=== PATIENT | male | born 1940 | race Caucasian/White ===

== ENCOUNTER 2019-09-28 09:18 | Outpatient (CLI) | payer MEDICARE, OTHER, SELFPAY ==
--- NOTE | 2019-09-28 09:34 | XR_ITS ---
WS: [id number] views of the right third finger, 09/28/2019 Clinical Data: DOG BITE ON R MIDDLE FINGER Comparison: None. Findings: There are small radiopaque fragments at the level of the right third DIP joint. The dog bite may have avulsed some cortical fragments from the distal portion of the middle phalanx and the base of the di stal phalanx. The joint spaces are normal. XR/XR finger RT min 2V [id number] Impression: Dog bite which may have caused cortical fracture of the radial distal base of t he third middle phalanx and radial proximal base of the third distal phalanx.
== END 2019-09-28 09:19 | disposition home or self-care (01) ==
LOC: RAD 09:26
PROVIDERS: Family Provider Family Medicine; PCP Family Medicine; Visit Provider Family Medicine
DX: S61.252A Open bite of right middle finger without damage to nail, initial encounter (principal); X58.XXXA Exposure to other specified factors, initial encounter
CPT/HCPCS: 73140

== ENCOUNTER → 2020-03-04 12:54 | Outpatient (BNVA) | payer MEDICARE, OTHER, SELFPAY | PROVIDERS: Family Provider Family Medicine; PCP Family Medicine; Visit Provider Dermatology | DX: L57.0 Actinic keratosis (principal); D48.9 Neoplasm of uncertain behavior, unspecified; D69.2 Other nonthrombocytopenic purpura; L82.1 Other seborrheic keratosis; B35.1 Tinea unguium; L57.8 Other skin changes due to chronic exposure to nonionizing radiation; F17.210 Nicotine dependence, cigarettes, uncomplicated; Z85.89 Personal history of malignant neoplasm of other organs and systems | CPT/HCPCS: 11102; 11103; 11310; 11311; 17004; 88305; 99202; 99203 ==

== ENCOUNTER → 2020-04-21 07:56 | Outpatient (BNVA) | payer MEDICARE, OTHER, SELFPAY | PROVIDERS: Family Provider Family Medicine; PCP Family Medicine; Visit Provider Dermatology | DX: C44.91 Basal cell carcinoma of skin, unspecified (principal); C44.01 Basal cell carcinoma of skin of lip; C44.319 Basal cell carcinoma of skin of other parts of face; D48.9 Neoplasm of uncertain behavior, unspecified | CPT/HCPCS: 12052; 17311 ==

== ENCOUNTER → 2020-04-30 13:06 | Outpatient (BNVA) | payer MEDICARE, OTHER, SELFPAY | PROVIDERS: Family Provider Family Medicine; PCP Family Medicine; Visit Provider Dermatology | DX: Z48.02 Encounter for removal of sutures (principal) | CPT/HCPCS: 73502; 99024 ==

== ENCOUNTER → 2020-06-19 11:03 | Outpatient (BNVA) | payer MEDICARE, OTHER, SELFPAY | PROVIDERS: Family Provider Family Medicine; PCP Family Medicine; Visit Provider Orthopaedic Surgery | DX: M48.061 Spinal stenosis, lumbar region without neurogenic claudication (principal); M54.5 Low back pain | CPT/HCPCS: 72114 ==

== ENCOUNTER 2020-06-24 11:18 | Outpatient (CLI) | payer MEDICARE, OTHER, SELFPAY ==
--- NOTE | 2020-06-24 11:45 | MR_ITS ---
WS: [id number] MRI LUMBAR SPINE NONCONTRAST TECHNIQUE: Sagittal T1, T2 and STIR imaging. Axial T1 and T2 imaging. CLINICAL INFORMATION: M54.9 Dorsalgia, unspecified COMPARISON: None. FINDINGS: Mild lumbar curve. No acute compression. No high-grade central canal stenosis. Slight retrolisthesis L3 on L4 and L4 on L5. Disc space narrowing worse L4-5. Degenerative endplate-type changes at L2, L3 and L4. Mild chronic biconcave compression L3 with endplate Schmorl's nodes. L1-L2: Mild disc bulging with narrowing of the right subarticular recess. Mild to moderate facet arth ropathy. Spinal canal and foramen are patent. L2-L3: Mild disc bulging with narrowing of the subarticular recess bilaterally and slight impingement traversing L3 nerve roots. Mild to moderate facet arthropathy. Mild right foraminal narrowing. L3-L4: Mild annular bulging with mild central canal stenosis. Narrowing of the subarticular recess bi laterally. Small right foraminal protrusion with mild right foraminal narrowing. Left foramen is breen nt. Moderate facet arthropathy. L4-L5: Mild disc bulging with a tiny shallow central protrusion. Mild central canal stenosis with sli ght impingement traversing L5 nerve roots bilaterally. Moderate bilateral bony foraminal narrowing. M ild facet arthropathy. L5-S1: Mild disc bulging with osteophytic ridging. Encroachment traversing left S1 nerve root. Modera te bilateral foraminal narrowing with contact of the exiting L5 nerve roots bilaterally left greater than right. Visualized pelvic bony structures: Normal. Paravertebral soft tissues: Normal. Bilateral renal cysts the largest left kidney measuring 3.4 cm. MR/MR lumbar spine wo con* [id number] IMPRESSION: 1. Mild lumbar curve. No acute compression. Slight retrolisthesis L3 on L4 and L4 on L5. 2. Mild central canal stenosis L3-L4 and L4-L5 with narrowing of the subarticu lar recess bilaterally. 3. Shallow central protrusion L4-5 slightly impinges the traversing L5 nerve r oots bilaterally. Moderate bilateral foraminal narrowing with contact of the ex iting L4 nerve roots, left greater than right. 4. Moderate bilateral L5-S1 bony foraminal narrowing worse in the left with co ntact of the far exiting left L5 nerve root. Correlation for left L5 nerve root symptoms. 5. Moderate facet arthropathy L3-L5.
== END 2020-06-24 11:19 | disposition home or self-care (01) ==
LOC: RADSHAW 11:22
PROVIDERS: PCP Family Medicine; Visit Provider Orthopaedic Surgery
DX: M48.061 Spinal stenosis, lumbar region without neurogenic claudication (principal); M51.26 Other intervertebral disc displacement, lumbar region; M47.816 Spondylosis without myelopathy or radiculopathy, lumbar region
CPT/HCPCS: 72148

== ENCOUNTER → 2020-07-16 10:54 | Outpatient (BNVA) | payer MEDICARE, OTHER, SELFPAY | PROVIDERS: PCP Family Medicine; Visit Provider Orthopaedic Surgery | DX: Z20.828 Contact with and (suspected) exposure to other viral communicable diseases (principal) | CPT/HCPCS: 87635 ==

== ENCOUNTER 2020-07-23 05:40 | Day surgery (SDC) | payer MEDICARE, OTHER, SELFPAY ==
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
[2020-07-21 10:56] VITALS: BMI 22.8
[2020-07-21 11:27] LABS: Basophils % 0.2 %; Eosinophils % 0.2 %; Hematocrit 44.9 % (42.0-52.0); Hemoglobin 14.7 g/dL (11.7-16.6); Lymphocytes # 2.7 10^3/uL (0.8-4.8); Lymphocytes % 21.9 %; Mean Corpuscular HGB Conc 32.7 g/dL (30.0-36.0); Mean Corpuscular Hemoglobin 31.2 pg (28.0-34.0); Mean Corpuscular Volume 95.3 fL (80-94); Mean Platelet Volume 10.3 fL (7.4-10.4); Monocytes # 0.8 10^3/uL (0.2-0.9); Monocytes % 6.8 %; Neutrophils # 8.71 10^3/uL (1.8-7.7); Neutrophils % 70.5 %; Nucleated Red Blood Cells % 0 %; Platelet Count 183 10^3/cmm (130-400); Red Blood Count 4.71 10^6/uL (4.1-5.3); Red Cell Distribution Width 14.5 % (12.1-15.1); White Blood Count 12.4 10^3/uL (4.0-10.0)
[2020-07-21 11:45] LABS: Alanine Aminotransferase 9 U/L (0-41); Albumin Level 4.3 g/dL (3.5-5.2); Alkaline Phosphatase 64 IU/L (40-130); Anion Gap 13.2 (5-19); Aspartate Amino Transferase 16 U/L (0-40); Blood Urea Nitrogen 11 mg/dL (8-23); Calcium 9.1 mg/dL (8.5-10.5); Carbon Dioxide 27 mmol/L (22-29); Chloride 95 mmol/L (98-107); Globulin 2.2 g/dL (1.3-4.6); Glucose 98 mg/dL (65-115); Osmolality Calculated 271 mOsm/kg (285-295); Potassium 4.2 mmol/L (3.5-5.1); Sodium 131 mmol/L (136-145); Total Bilirubin 0.3 mg/dL (0.15-1.2); Total Protein 6.5 g/dL (6.6-8.7)
--- NOTE | 2020-07-21 12:22 | P.ANESASSM_ITS ---
Pre-Anesthetic Assessment Pre-Anesthetic Assessment: Height/Weight: Height 1.83 m Weight 76.204 kg Proposed Procedure: Operation Date: 07/23/20 09:40 Proposed Procedures p L4/5 bilateral Lumbar Spine Decompression; left L5/S1:41284 M48.06(Bilateral) - Fausto Anrdews, DO Was Beta Gary taken within 24 hours: N/A Social: Social History: No alcohol and No tobacco Exam: Pre-Anes Outpt Exam: alert, oriented x 3, clear to auscultation bilaterally and regular rate & rhythm Airway: Submandibular: WNL Cervical ROM: WNL MP: 2 Additional comments: Poor dentition Pulmonary: Pulmonary: COPD Comments: h/o smoking CV/HEM: CV/HEM: HTN : : None reported Hepatic: Hepatic: None reported GI: GI: None reported Metabolic: Metabolic: None reported Musc/skel: Musc/skel: Lower Back Pain Neuropsych: Neuropsych: CVA and TIA Anesthetic Plan: ASA status: 3 Anesthesia: General Risk of > 500 ml bloo d loss (7ml/kg in children): Yes, adequate IV access and fluids planned PFSH Anesthesia PFSH: Medical History CAD (coronary artery disease) History of nonmelanoma skin cancer Hyperlipidemia Hypertension Stroke (cerebrum) Surgical History No history of previous surgery Family History Mother Hypertension Other Cancer Social History Smoking and tobacco status: current every day smoker cigarettes Packs smoked per day: 1 Years cigarettes smoked: 60 Alcohol intake: current Alcohol intake frequency: few times a month Alcohol type: beer Data Anesthesia CBC & Chem 7: 07/21/20 11:06 07/21/20 11:06 Other Labs: Laboratory Results - last 48 hr 07/21/20 07/21/20 11:06 11:06 WBC 12.4 H RBC 4.71 Hgb 14.7 Hct 44.9 MCV 95.3 H MCH 31.2 MCHC 32.7 RDW 14.5 Plt Count 183 MPV 10.3 Neut % (Auto) 70.5 Lymph % (Auto) 21.9 Traverse % (Auto) 6.8 Eos % (Auto) 0.2 Baso % (Auto) 0.2 Neut # (Auto) 8.71 H Lymph # (Auto) 2.7 Traverse # (Auto) 0.8 Eos # (Auto) 0.0 Baso # (Auto) 0.0 Nucleated RBC % (auto) 0 Nucleated RBCs # 0.0 Sodium 131 L Potassium 4.2 Chloride 95 L Carbon Dioxide 27 Anion Gap 13.2 BUN 11 Creatinine 0.9 GFR Calculation Not Reportable Glucose 98 Calculated Osmolality 271 L Calcium 9.1 Total Bilirubin 0.3 AST 16 ALT 9 Alkaline Phosphatase 64 Total Protein 6.5 L Albumin 4.3 Globulin 2.2 Cardiac Studies: No Data to Display
[2020-07-23] VITALS (7 sets, daily range): BP systolic 156–168; BP diastolic 55–92; PULSE 64–76; RESP 12–16; TEMP 36.3–36.9; O2SAT 96–100
--- NOTE | 2020-07-23 | SCC_ITS ---
Procedure Done: 1. L4/5 bilateral laminectomy with partial facetectomy 2. L5/S1 Laminectomy with partial facetectomy 17.0 seconds of fluoroscopic guidance, for a cumulative dose of 5.35 mGy, was provided to Dr. Andrews by the radiology department. C-arm images of the lumbar spine were saved for the patient's permanent record. [facility]
[2020-07-23] MEDS: gabapentin 300 mg Capsule PO (06:17)
[2020-07-23] MEDS: sodium chloride 0.9% 1,000 ML 30 ML IV (06:29)
--- NOTE | 2020-07-23 06:32 | P.ANESUD_ITS ---
Pre-Anesthetic Update Pre-Anesthetic Assessment: Date of Surgery/Procedure: 07/23/20 Preop Kenia gnosis: lumbar stenosis Proposed Procedure: Operation Date: 07/23/20 07:30 Proposed Procedures p L4/5 bilateral Lumbar Spine Decompression; left L5/S1:90458 M48.06(Bilateral) - Faustotiki Andrews, DO Any changes to Pre-Anesthetic Assessment?: No Last Intake: Intake Last Liquid Date 07/22/20 Last Liquid Time 21:30 Last Solid Date 07/22/20 Last Solid Time 21:30 Labs Last 48hrs: Laboratory Results - last 48 hr 07/21/20 07/21/20 11:06 11:06 WBC 12.4 H RBC 4.71 Hgb 14.7 Hct 44.9 MCV 95.3 H MCH 31.2 MCHC 32.7 RDW 14.5 Plt Count 183 MPV 10.3 Neut % (Auto) 70.5 Lymph % (Auto) 21.9 Dukes % (Auto) 6.8 Eos % (Auto) 0.2 Baso % (Auto) 0.2 Neut # (Auto) 8.71 H Lymph # (Auto) 2.7 Dukes # (Auto) 0.8 Eos # (Auto) 0.0 Baso # (Auto) 0.0 Nucleated RBC % (a uto) 0 Nucleated RBCs # 0.0 Sodium 131 L Potassium 4.2 Chloride 95 L Carbon Dioxide 27 Anion Gap 13.2 BUN 11 Creatinine 0.9 GFR Calculation Not Reportable Glucose 98 Calculated Osmolal ity 271 L Calcium 9.1 Total Bilirubin 0.3 AST 16 ALT 9 Alkaline Phosphata se 64 Total Protein 6.5 L Albumin 4.3 Globulin 2.2 Vitals: Temperature 98.5 F 07/23/20 06:02 Temperature Source Temporal Artery S can 07/23/20 06:02 Pulse Rate 71 07/23/20 06:02 Respiratory Rate 16 07/23/20 06:02 Blood Pressure 160/55 07/23/20 06:02 Blood Pressure Kathia n 90 07/23/20 06:02 Pulse Oximetry 96 07/23/20 06:02 Oxygen Delivery Me thod 07/23/20 06:02 Exam: Pre-Anes Outpt Exam: alert, oriented x 3, clear to auscultation bilaterally and regular rate & rhythm Cardiac Studies: No Data to Display
--- NOTE | 2020-07-23 06:46 | W.PM.OPSUD ---
Surgery/Procedure H&P Update DATE OF PROCEDURE: July 23, 2020 DATE H&P PERFORMED: 06/24/20 H&P UPDATE INFORMATION: I have reviewed H&P completed within last 30 days, I have examined patient prior to procedure and No changes to prior documentation PREOP DIAGNOSIS: lumbar stenosis PLANNED PROCEDURE: Operation Date: 07/23/20 07:30 Proposed Procedures p L4/5 bilateral Lumbar Spine Decompression; left L5/S1:21859 M48.06(Bilateral) - Fausto Andrews DO
--- NOTE | 2020-07-23 09:13 | PM.OP ---
Operative Report Date of procedure: July 23, 2020 Pre-op Diagnosis: lumbar stenosis Post-op diagnosis: same Procedure Done: 1. L4/5 bilateral laminectomy with partial facetectomy 2. L5/S1 Laminectomy with partial facetectomy Surgeon: Fausto Andrews Anesthesia: General Estimated blood loss (mL): 50 Condition: stable Disposition: PACU Procedure: Patient was brought to the operative suite after being put to sleep from anesthesia patient was placed in the prone position all areas impingement were well-padded. Skin was made at between the L4-5 and L5-S1 level. Is confirmed under C-arm guidance. Dilators were passed to the retractor was inserted onto the L4 lamina bilateral laminectomy and facetectomy partial facetectomies were performed through the tube using a microscope the high-speed bur was used to perform the laminectomy then Kerrison rongeur was used to take down the remaining bone as well as perform the facetectomy was facetectomy medial facetectomy was performed this was done using curettes Kerrisons and high-speed bur ligamentum flavum was then taken down from L4-L5 bilaterally. Once was taken down the dura was thin the ligament flavum was somewhat calcified and thickened. Lateral recesses were opened up once the lateral recesses were opened up the L5 nerve was felt to be adequately decompressed bilaterally once this was completed then wounds irrigated and Surgi-Christopher was placed to stop bleeding. She was brought to the L5-S1 level again dilators were passed to retractor was docked onto the L5 lamina microscope was brought back and laminectomies performed using high-speed bur as well as take down the medial aspect of the facet joint and ligamentum flavum was then taken down from L5-S1 once the leg was removed it was significant thickened with again the dura was thin but in good repair S1 nerve was completely decompressed as was the L5-S1 foramen wounds were irrigated again Surgi-Christopher was placed and then sterile dressings the thoracolumbar fascia was closed with 0 Vicryl skin was closed with 2-0 Vicryl and Monocryl suture skin glue and patient was transferred to the PACU in stable condition.
--- NOTE | 2020-07-23 09:33 | SUR.PHASEI ---
PT SLEEPING QUIETLY VSS PT DENIES PAIN EARLIER .IV PATENT SCDS ON. GOOD RESP EFFORT NOTED SATS 100%
--- NOTE | 2020-07-23 09:51 | XR_ITS ---
WS: [id number] Lumbar spine, 2 cm fluoroscopy views, 07/23/2020 Clinical Data: LUMBAR SPINE DECOMPRESSION Comparison: None. Findings: The AP views showed that the surgeon operated at the L5-S1 level. XR/XR lumbar spine 2-3V* [id number] Impression: Operating room views of the lower lumbar spine.
--- NOTE | 2020-07-23 09:57 | SUR.PHASEI ---
0944 PT AWAKE ALERT DENIES PAIN AND NAUSEA, VSS HANDOFF AT BEDSIDE TO DANIELLE IN OPS, PT MOVES ALL EXT TO COMMAND PT [place], WITH RT EYE CLOSED , PT HAS HX OF STROKE IN PAST.
--- NOTE | 2020-07-23 11:10 | ANE.PACU2 ---
Inpatient post-anesthesia follow up: Airway intact: Yes Vital signs: Temperature 97.8 F Pulse Rate 65 Respiratory Rate 16 Blood Pressure 168/88 Pulse Oximetry 97 Oxygen Delivery Me thod Room Air Oxygen Flow Rate 8 Fraction of Inspir ed Oxygen Hydration adequate: Yes Nausea and vomiting: No Pain level: 3 Mental status: Baseline
== END 2020-07-23 10:30 | disposition home or self-care (01) ==
PROVIDERS: Anesthesiology; PCP Family Medicine; Visit Provider Orthopaedic Surgery
PROC: (CPT 63005; principal; 2020-07-23 07:30)
DX: M48.061 Spinal stenosis, lumbar region without neurogenic claudication (principal); J44.9 Chronic obstructive pulmonary disease, unspecified; I10 Essential (primary) hypertension; Z86.73 Personal history of transient ischemic attack (TIA), and cerebral infarction without residual deficits; I25.10 Atherosclerotic heart disease of native coronary artery without angina pectoris; E78.5 Hyperlipidemia, unspecified; F17.210 Nicotine dependence, cigarettes, uncomplicated
CPT/HCPCS: 63047; 63048; 12345; 72100; 76000; 80053; 85025; J0690; J1100; J2370; J2405; J2704; J2710; J3010; J3490; J7030

== ENCOUNTER → 2020-09-11 13:36 | Outpatient (BNVA) | payer MEDICARE, OTHER, SELFPAY | PROVIDERS: PCP Family Medicine; Visit Provider Orthopaedic Surgery | DX: M53.3 Sacrococcygeal disorders, not elsewhere classified (principal) | CPT/HCPCS: 72220 ==

== ENCOUNTER 2020-12-08 17:20 | Outpatient (CLI) | payer MEDICARE, OTHER, SELFPAY ==
--- NOTE | 2020-12-08 17:56 | XRR_ITS ---
PROCEDURE INFORMATION: Exam: XR Chest Exam date and time: 12/08/2020 5:56 PM Age: 80 years old Clinical indication: Condition or disease; Lung condition and disease; Pneumonia; Cough and shortness of breath; Additional info: Hypoxia/pneumonia TECHNIQUE: Imaging protocol: XR of the chest. Views: Frontal and lateral upright, 2 views. COMPARISON: CR Chest 1 [place] [id number] 04/10/2015 7:15 PM FINDINGS: Lungs: Mild pulmonary hyperexpansion. Mild left lateral basilar subsegmental atelectasis. The lungs are otherwise clear bilaterally. The pulmonary vasculature is normal. Pleural spaces: No pleural effusion. No pneumothorax. Heart/Mediastinum: The heart is normal in size and contour. Mediastinum: Stable. Bones/joints: Stable. XR/XR chest 2V* [id number] IMPRESSION: 1. Mild pulmonary hyperexpansion. 2. Mild left lateral basilar subsegmental atelectasis.
== END 2020-12-08 17:21 | disposition home or self-care (01) ==
PROVIDERS: PCP Family Medicine; Visit Provider Family Medicine
DX: R09.02 Hypoxemia (principal); J98.11 Atelectasis
CPT/HCPCS: 71046

== ENCOUNTER 2021-02-20 12:37 | Outpatient (CLI) | payer MEDICARE, OTHER, SELFPAY ==
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
== END 2021-02-20 12:38 | disposition home or self-care (01) ==
LOC: US 12:39
PROVIDERS: PCP Family Medicine; Visit Provider Family Medicine
DX: I73.9 Peripheral vascular disease, unspecified (principal)
CPT/HCPCS: 93922

== ENCOUNTER → 2021-07-09 13:23 | Outpatient (BNVA) | payer MEDICARE, OTHER, SELFPAY | PROVIDERS: PCP Family Medicine; Visit Provider Orthopaedic Surgery | DX: M54.50 Low back pain, unspecified (principal); Z87.81 Personal history of (healed) traumatic fracture | CPT/HCPCS: 72100 ==

== ENCOUNTER → 2021-07-30 12:22 | Outpatient (BNVA) | payer MEDICARE, OTHER, SELFPAY | PROVIDERS: PCP Family Medicine; Referring Provider Orthopaedic Surgery; Visit Provider Anesthesiology Pain Medicine | DX: M51.36 Other intervertebral disc degeneration, lumbar region (principal); M47.816 Spondylosis without myelopathy or radiculopathy, lumbar region; M51.16 Intervertebral disc disorders with radiculopathy, lumbar region; M53.3 Sacrococcygeal disorders, not elsewhere classified; M79.604 Pain in right leg; M79.605 Pain in left leg; F17.210 Nicotine dependence, cigarettes, uncomplicated; Z79.899 Other long term (current) drug therapy | CPT/HCPCS: 99204 ==

== ENCOUNTER → 2021-08-10 14:21 | Outpatient (BNVA) | payer MEDICARE, OTHER, SELFPAY | PROVIDERS: PCP Family Medicine; Visit Provider Anesthesiology Pain Medicine | DX: M53.3 Sacrococcygeal disorders, not elsewhere classified (principal); M54.50 Low back pain, unspecified; F17.200 Nicotine dependence, unspecified, uncomplicated | CPT/HCPCS: G0260; J1040; J3490 ==

== ENCOUNTER → 2021-08-24 09:32 | Outpatient (BNVA) | payer MEDICARE, OTHER, SELFPAY | PROVIDERS: PCP Family Medicine; Visit Provider Anesthesiology Pain Medicine | DX: M51.36 Other intervertebral disc degeneration, lumbar region (principal); M47.816 Spondylosis without myelopathy or radiculopathy, lumbar region; M51.16 Intervertebral disc disorders with radiculopathy, lumbar region; M53.3 Sacrococcygeal disorders, not elsewhere classified; M79.604 Pain in right leg; M79.605 Pain in left leg; F17.200 Nicotine dependence, unspecified, uncomplicated | CPT/HCPCS: 99214 ==

== ENCOUNTER → 2021-08-31 13:59 | Outpatient (BNVA) | payer MEDICARE, OTHER, SELFPAY | PROVIDERS: PCP Family Medicine; Visit Provider Anesthesiology Pain Medicine | DX: M47.816 Spondylosis without myelopathy or radiculopathy, lumbar region (principal) | CPT/HCPCS: 64493; 64494; 64495; J3490 ==

== ENCOUNTER → 2021-10-06 09:30 | Outpatient (BNVA) | payer MEDICARE, OTHER, SELFPAY | PROVIDERS: PCP Family Medicine; Visit Provider Anesthesiology Pain Medicine | DX: M51.36 Other intervertebral disc degeneration, lumbar region (principal); M47.816 Spondylosis without myelopathy or radiculopathy, lumbar region; M51.16 Intervertebral disc disorders with radiculopathy, lumbar region; M53.3 Sacrococcygeal disorders, not elsewhere classified; F17.210 Nicotine dependence, cigarettes, uncomplicated | CPT/HCPCS: 99214 ==

== ENCOUNTER → 2021-10-21 13:49 | Outpatient (BNVA) | payer MEDICARE, OTHER, SELFPAY | PROVIDERS: PCP Family Medicine; Visit Provider Anesthesiology Pain Medicine | DX: M47.816 Spondylosis without myelopathy or radiculopathy, lumbar region (principal); F17.210 Nicotine dependence, cigarettes, uncomplicated | CPT/HCPCS: 64635; 64636; J1030 ==

== ENCOUNTER → 2021-11-09 12:44 | Outpatient (BNVA) | payer MEDICARE, OTHER, SELFPAY | PROVIDERS: PCP Family Medicine; Visit Provider Anesthesiology Pain Medicine | DX: F17.210 Nicotine dependence, cigarettes, uncomplicated (principal); M47.816 Spondylosis without myelopathy or radiculopathy, lumbar region | CPT/HCPCS: 64635; 64636; J1030 ==

== ENCOUNTER → 2021-11-23 10:34 | Outpatient (BNVA) | payer MEDICARE, OTHER, SELFPAY | PROVIDERS: PCP Family Medicine; Visit Provider Anesthesiology Pain Medicine | DX: M51.36 Other intervertebral disc degeneration, lumbar region (principal); M47.816 Spondylosis without myelopathy or radiculopathy, lumbar region; M51.16 Intervertebral disc disorders with radiculopathy, lumbar region; M53.3 Sacrococcygeal disorders, not elsewhere classified; M79.604 Pain in right leg; M79.605 Pain in left leg; F17.210 Nicotine dependence, cigarettes, uncomplicated | CPT/HCPCS: 99212 ==

== ENCOUNTER → 2021-12-23 12:10 | Outpatient (BNVA) | payer MEDICARE, OTHER, SELFPAY | PROVIDERS: PCP Family Medicine; Visit Provider Family Medicine | DX: I10 Essential (primary) hypertension (principal); G62.9 Polyneuropathy, unspecified; D64.9 Anemia, unspecified | CPT/HCPCS: 80053; 85025 ==

== ENCOUNTER → 2022-01-12 14:41 | Outpatient (BNVA) | payer MEDICARE, OTHER, SELFPAY | PROVIDERS: PCP Family Medicine; Visit Provider Orthopaedic Surgery | DX: M51.16 Intervertebral disc disorders with radiculopathy, lumbar region (principal) | CPT/HCPCS: 99203; 99204; 99213 ==

== ENCOUNTER → 2022-01-17 11:26 | Outpatient (BNVA) | payer MEDICARE, OTHER, SELFPAY | PROVIDERS: PCP Family Medicine; Visit Provider Registered Nurse Neonatal Intensive Care | DX: M54.9 Dorsalgia, unspecified (principal); N39.0 Urinary tract infection, site not specified | CPT/HCPCS: 81000 ==

== ENCOUNTER → 2022-01-26 10:24 | Outpatient (BNVA) | payer MEDICARE, OTHER, SELFPAY | PROVIDERS: PCP Family Medicine; Visit Provider Anesthesiology Pain Medicine | DX: M79.18 Myalgia, other site (principal); M51.36 Other intervertebral disc degeneration, lumbar region; M47.816 Spondylosis without myelopathy or radiculopathy, lumbar region; M51.16 Intervertebral disc disorders with radiculopathy, lumbar region; M53.3 Sacrococcygeal disorders, not elsewhere classified; F17.210 Nicotine dependence, cigarettes, uncomplicated | CPT/HCPCS: 20553; 99213 ==

== ENCOUNTER → 2022-02-15 16:33 | Outpatient (BNVA) | payer MEDICARE, OTHER, SELFPAY | PROVIDERS: PCP Family Medicine; Visit Provider Family Medicine | DX: I10 Essential (primary) hypertension (principal) | CPT/HCPCS: 80048 ==

== ENCOUNTER 2022-02-16 12:16 | Outpatient (CLI) | payer MEDICARE, OTHER, SELFPAY ==
--- NOTE | 2022-02-16 12:27 | XR_ITS ---
WS: [id number] XR chest 2V* [id number] REASON FOR EXAM: ACUTE BRONCHITIS FINDINGS: Calcified the heart and the mediastinum are within normal limits. Calcified granulomatous disease in both hemithoraces. Ill-defined areas of lucency in the upper lung figueroa. No acute pulmonary parenchymal or pleural abnormality. Flattening of the hemidiaphragms and expansion of the anterior clear space. Multiple wedge-shaped and biconcave compression deformities in the thoracic vertebrae which appear un changed compared to 11/28/2020. XR/XR chest 2V* [id number] IMPRESSION: Probable central lobar emphysema with mild to moderate hyperexpansion. No acute chest abnormality.
== END 2022-02-16 12:17 | disposition home or self-care (01) ==
LOC: RAD 12:18
PROVIDERS: PCP Family Medicine; Visit Provider Family Medicine
DX: J20.9 Acute bronchitis, unspecified (principal)
CPT/HCPCS: 71046

== ENCOUNTER → 2022-04-12 08:52 | Outpatient (BNVA) | payer MEDICARE, OTHER, SELFPAY | PROVIDERS: PCP Family Medicine; Visit Provider Anesthesiology Pain Medicine | DX: M51.16 Intervertebral disc disorders with radiculopathy, lumbar region (principal); M51.36 Other intervertebral disc degeneration, lumbar region; M47.816 Spondylosis without myelopathy or radiculopathy, lumbar region; M53.3 Sacrococcygeal disorders, not elsewhere classified; M79.604 Pain in right leg; M79.605 Pain in left leg; F17.210 Nicotine dependence, cigarettes, uncomplicated; Z79.891 Long term (current) use of opiate analgesic | CPT/HCPCS: 99214 ==

== ENCOUNTER → 2022-04-15 12:41 | Outpatient (BNVA) | payer MEDICARE, OTHER, SELFPAY | PROVIDERS: PCP Family Medicine; Visit Provider Family Medicine | DX: M25.521 Pain in right elbow (principal); I10 Essential (primary) hypertension | CPT/HCPCS: 84550; 85025 ==

== ENCOUNTER → 2022-09-06 13:28 | Outpatient (BNVA) | payer MEDICARE, SELFPAY | PROVIDERS: PCP Family Medicine; Visit Provider Family Medicine | DX: G47.00 Insomnia, unspecified (principal); I25.10 Atherosclerotic heart disease of native coronary artery without angina pectoris; I10 Essential (primary) hypertension | CPT/HCPCS: 80053; 85025 ==

== ENCOUNTER → 2022-12-29 13:01 | Outpatient (BNVA) | payer MEDICARE, OTHER, SELFPAY | PROVIDERS: PCP Family Medicine; Visit Provider Dermatology | DX: C44.319 Basal cell carcinoma of skin of other parts of face (principal); Z79.899 Other long term (current) drug therapy; Z85.828 Personal history of other malignant neoplasm of skin; L57.0 Actinic keratosis; S00.86XA Insect bite (nonvenomous) of other part of head, initial encounter; W57.XXXA Bitten or stung by nonvenomous insect and other nonvenomous arthropods, initial encounter; L81.4 Other melanin hyperpigmentation; I78.8 Other diseases of capillaries; R25.2 Cramp and spasm; Z72.0 Tobacco use | CPT/HCPCS: 10120; 17000; 17003; 99214 ==

== ENCOUNTER → 2023-03-01 14:45 | Outpatient (BNVA) | payer MEDICARE, OTHER, SELFPAY | PROVIDERS: PCP Family Medicine; Visit Provider Dermatology | DX: C44.319 Basal cell carcinoma of skin of other parts of face (principal); L57.0 Actinic keratosis; Z85.828 Personal history of other malignant neoplasm of skin; Z72.0 Tobacco use | CPT/HCPCS: 17000; 17003; 99214 ==

== ENCOUNTER → 2023-03-23 12:39 | Outpatient (BNVA) | payer MEDICARE, OTHER, SELFPAY | PROVIDERS: PCP Family Medicine; Visit Provider Family Medicine | DX: I10 Essential (primary) hypertension (principal); M19.90 Unspecified osteoarthritis, unspecified site; G47.00 Insomnia, unspecified | CPT/HCPCS: 80053; 80061; 84550; 85025; 86140 ==

== ENCOUNTER → 2023-05-02 15:07 | Outpatient (BNVA) | payer MEDICARE, OTHER, SELFPAY | PROVIDERS: PCP Family Medicine; Visit Provider Dermatology | DX: C44.319 Basal cell carcinoma of skin of other parts of face (principal); L57.0 Actinic keratosis; D48.5 Neoplasm of uncertain behavior of skin | CPT/HCPCS: 11102; 17000; 17003; 99213 ==

== ENCOUNTER → 2023-05-09 09:45 | Outpatient (BNVA) | payer MEDICARE, OTHER, SELFPAY | PROVIDERS: PCP Family Medicine; Visit Provider Dermatology | DX: C44.319 Basal cell carcinoma of skin of other parts of face (principal); C44.1122 Basal cell carcinoma of skin of right lower eyelid, including canthus | CPT/HCPCS: 12052; 17311; 17312 ==

== ENCOUNTER → 2023-05-16 09:56 | Outpatient (BNVA) | payer MEDICARE, OTHER, SELFPAY | PROVIDERS: PCP Family Medicine; Visit Provider Dermatology | DX: C44.319 Basal cell carcinoma of skin of other parts of face (principal) | CPT/HCPCS: 12052; 17311 ==

== ENCOUNTER → 2023-05-26 11:07 | Outpatient (BNVA) | payer MEDICARE, OTHER, SELFPAY | PROVIDERS: PCP Family Medicine; Visit Provider Dermatology | DX: L57.8 Other skin changes due to chronic exposure to nonionizing radiation (principal); L81.4 Other melanin hyperpigmentation | CPT/HCPCS: 99213 ==

== ENCOUNTER → 2023-08-21 12:45 | Outpatient (BNVA) | payer MEDICARE, OTHER, SELFPAY | PROVIDERS: PCP Family Medicine; Visit Provider Emergency Medicine | DX: R39.9 Unspecified symptoms and signs involving the genitourinary system (principal); N10 Acute pyelonephritis | CPT/HCPCS: 81000; 87086 ==

== ENCOUNTER → 2023-08-25 13:23 | Outpatient (BNVA) | payer MEDICARE, OTHER, SELFPAY | PROVIDERS: PCP Family Medicine; Visit Provider Dermatology | DX: Z85.828 Personal history of other malignant neoplasm of skin (principal); L57.8 Other skin changes due to chronic exposure to nonionizing radiation; L81.4 Other melanin hyperpigmentation; L57.0 Actinic keratosis | CPT/HCPCS: 17000; 99213 ==

== ENCOUNTER → 2023-08-29 15:19 | Outpatient (BNVA) | payer MEDICARE, OTHER, SELFPAY | PROVIDERS: PCP Family Medicine; Visit Provider Family Medicine | DX: R31.9 Hematuria, unspecified (principal); N39.0 Urinary tract infection, site not specified; R53.1 Weakness | CPT/HCPCS: 87077; 87086; 87184 ==

== ENCOUNTER → 2023-08-31 15:58 | Outpatient (BNVA) | payer MEDICARE, OTHER, SELFPAY | PROVIDERS: PCP Family Medicine; Visit Provider Family Medicine | DX: R31.9 Hematuria, unspecified (principal); N39.0 Urinary tract infection, site not specified; R53.1 Weakness | CPT/HCPCS: 81003 ==

== ENCOUNTER → 2023-09-08 07:00 | Outpatient (BNVA) | payer MEDICARE, OTHER, SELFPAY | PROVIDERS: PCP Family Medicine; Visit Provider Family Medicine | DX: N39.0 Urinary tract infection, site not specified (principal) | CPT/HCPCS: 81000 ==

== ENCOUNTER → 2023-10-18 13:04 | Outpatient (BNVA) | payer MEDICARE, OTHER, SELFPAY | PROVIDERS: PCP Family Medicine; Visit Provider Dermatology | DX: L57.0 Actinic keratosis (principal); L82.1 Other seborrheic keratosis; L82.0 Inflamed seborrheic keratosis; L81.4 Other melanin hyperpigmentation; L57.8 Other skin changes due to chronic exposure to nonionizing radiation; Z85.828 Personal history of other malignant neoplasm of skin | CPT/HCPCS: 17000; 17110; 99214 ==

== ENCOUNTER → 2024-02-16 13:13 | Outpatient (BNVA) | payer MEDICARE, OTHER, SELFPAY | PROVIDERS: PCP Family Medicine; Visit Provider Dermatology | DX: L82.0 Inflamed seborrheic keratosis (principal); L57.0 Actinic keratosis; H61.031 Chondritis of right external ear; S50.811A Abrasion of right forearm, initial encounter; X58.XXXA Exposure to other specified factors, initial encounter | CPT/HCPCS: 10160; 17000; 17110; 99213 ==

== ENCOUNTER → 2024-06-05 14:13 | Outpatient (BNVA) | payer MEDICARE, OTHER, SELFPAY | PROVIDERS: PCP Family Medicine; Visit Provider Dermatology | DX: H61.031 Chondritis of right external ear (principal); L81.4 Other melanin hyperpigmentation; L57.8 Other skin changes due to chronic exposure to nonionizing radiation; D48.5 Neoplasm of uncertain behavior of skin; L57.0 Actinic keratosis; L82.1 Other seborrheic keratosis; Z95.828 Presence of other vascular implants and grafts | CPT/HCPCS: 11102; 17000; 99213 ==

== ENCOUNTER → 2024-07-23 13:20 | Outpatient (BNVA) | payer MEDICARE, OTHER, SELFPAY | PROVIDERS: PCP Family Medicine; Visit Provider Dermatology | DX: D03.39 Melanoma in situ of other parts of face (principal); C44.319 Basal cell carcinoma of skin of other parts of face; Z08 Encounter for follow-up examination after completed treatment for malignant neoplasm; Z85.828 Personal history of other malignant neoplasm of skin; L57.0 Actinic keratosis | CPT/HCPCS: 17000; 99214 ==

== ENCOUNTER → 2024-08-02 14:41 | Outpatient (BNVA) | payer MEDICARE, OTHER, SELFPAY | PROVIDERS: PCP Family Medicine; Visit Provider Family Medicine | DX: I25.10 Atherosclerotic heart disease of native coronary artery without angina pectoris (principal); F41.9 Anxiety disorder, unspecified; I10 Essential (primary) hypertension; M51.16 Intervertebral disc disorders with radiculopathy, lumbar region; Z79.899 Other long term (current) drug therapy | CPT/HCPCS: 80053; 80061; 85025 ==

== ENCOUNTER 2024-10-01 12:53 | Outpatient (CLI) | payer MEDICARE, OTHER, SELFPAY ==
--- NOTE | 2024-10-01 12:45 | USCV_ITS ---
Charanjit Alan Age: 83 Gender: M : 1940 Exam Date: 10/01/2024 12:58 Ordering Phys: Milton Madrigal MD Technologist: AGUILAR Exam Location: [place] Indication: LE Pain HISTORY: Lower extremity pain. PROCEDURES: Venous duplex imaging was performed in only the left lower extremity. The following venous structures were evaluated: common femoral vein, profunda vein, proximal portion of the greater saphenous vein, superficial femoral vein, and the popliteal vein. In addition, the posterior tibial and peroneal trunk were evaluated. Serial compression, augmentation maneuvers, and spectral Doppler flow evaluation were performed. FINDINGS: No evidence of DVT seen in any vessel visualized at this time. CONCLUSIONS No evidence of left lower extremity DVT. Rick Carpio MD (Electronically Signed) Final Date: 01 October 2024 17:11 S
== END 2024-10-01 12:54 | disposition home or self-care (01) ==
LOC: RAD 12:55
PROVIDERS: PCP Family Medicine; Visit Provider Family Medicine
DX: M79.605 Pain in left leg (principal)
CPT/HCPCS: 93971

== ENCOUNTER 2024-10-10 16:47 | Emergency (ER) | payer MEDICARE, OTHER, SELFPAY ==
[2024-10-10] VITALS (23 sets, daily range): BP systolic 136–185; BP diastolic 55–103; PULSE 78–93; RESP 15–36; TEMP 36.4; O2SAT 91–97
--- NOTE | 2024-10-10 16:54 | XRR_ITS ---
PROCEDURE INFORMATION: Exam: XR Left Foot Exam date and time: 10/10/2024 5:47 PM Age: 83 years old Clinical indication: Pain; Foot; Left TECHNIQUE: Imaging protocol: Radiologic exam of the left foot. Views: 3 or more views. COMPARISON: No relevant prior studies available. FINDINGS: Bones/joints: Old healed fracture deformity of the left 5th metatarsal. No acute fracture. Soft tissues: Normal. XR/XR foot LT min 3V* [id number] IMPRESSION: 1. No acute fracture. 2. Old healed fracture deformity of the left 5th metatarsal.
--- NOTE | 2024-10-10 17:09 | USR_ITS ---
PROCEDURE INFORMATION: Exam: US Duplex Left Lower Extremity Arteries Or Arterial Bypass Grafts Exam date and time: 10/10/2024 6:01 PM Age: 83 years old Clinical indication: Pain; Other: Cyanosis; Leg, lower; Left TECHNIQUE: Imaging protocol: Left Real-time duplex scan of the arteries or arterial bypass grafts of the left lower extremity with 2-D lugo scale, color Doppler flow and spectral waveform analysis. Images documented and saved. COMPARISON: [place] [id number] 10/10/2024 5:51 PM FINDINGS: Left external iliac artery: Monophasic flow in the left common iliac artery with a peak systolic velocity 72 cm/s. This decreases to 16 cm/s in the distal left iliac artery. Left common femoral artery: No flow. Left superficial femoral artery: No flow. Left popliteal artery: No flow. Left calf/foot arteries: No flow. US/CV arterial duplex [facility] [id number] IMPRESSION: 1. Monophasic flow in the left common iliac artery with a peak systolic velocity 72 cm/s. This decreases to 16 cm/s in the distal left iliac artery. 2. No flow in the left common femoral artery, superficial femoral artery, popliteal artery and calf/foot arteries.
--- NOTE | 2024-10-10 17:09 | W.ED.EXTPRO ---
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 Negative (Negative) 10/10/24 17:36 SARS-CoV-2 (PCR) Negative (Negative) 10/10/24 17:36 All radiology interpretation(s) finalized by discharge Discharge Plan Discharge Patient Disposition: Home Clinical Impression: Critical limb ischemia of left lower extremity, CAD (coronary artery disease), Cellulitis, Rhabdomyolysis Condition: Stable Prescriptions: New sulfamethoxazole-trimethoprim [Bactrim DS] 800-160 mg tablet 1 tab PO BID Qty: 14 0RF No Action PreserVision AREDS 7,160-113-100 [id number] tablet 2 tab PO DAILY Rx Instructions: administer with AM and PM meals cholecalciferol (vitamin D3) 75 mcg (3,000 unit) tablet 75 mcg PO DAILY (DME) electric scooter See Rx Instructions .Route .MEDSUPPLY Qty: 1 0RF Rx Instructions: As directed temazepam 30 mg capsule 30 mg PO .QHS 90 Days Qty: 90 1RF hydrocortisone 2.5 % cream 1 applic topical BID Qty: 30 1RF Rx Instructions: to face no more than 2 wks/mo prn for flares hydrocodone-acetaminophen 5-325 mg tablet 1 tab PO Q8H PRN (Reason: pain) 28 Days Qty: 60 0RF rosuvastatin 10 mg tablet See Rx Instructions .ROUTE .COMPLEX Qty: 90 3RF Dose Instruction: TAKE 1 TABLET BY MOUTH DAILY Rx Instructions: TAKE 1 TABLET BY MOUTH DAILY lisinopril 20 mg tablet See Rx Instructions .ROUTE .COMPLEX Qty: 180 3RF Dose Instruction: TAKE 1 TABLET BY MOUTH TWICE DAILY Rx Instructions: TAKE 1 TABLET BY MOUTH TWICE DAILY gabapentin 300 mg capsule 300 mg PO DAILY Qty: 90 5RF hydralazine 10 mg tablet See Rx Instructions .ROUTE .COMPLEX Qty: 540 3RF Dose Instruction: TAKE 2 TABLETS BY MOUTH THREE TIMES DAILY Rx Instructions: TAKE 2 TABLETS BY MOUTH THREE TIMES DAILY tamsulosin 0.4 mg capsule See Rx Instructions .ROUTE .COMPLEX Qty: 90 3RF Dose Instruction: TAKE 1 CAPSULE BY MOUTH DAILY Rx Instructions: TAKE 1 CAPSULE BY MOUTH DAILY clopidogrel 75 mg tablet 75 mg PO DAILY Qty: 90 3RF Discharge Orders: Discharge ED (Routine); Ordered 10/11/24 Ordered By: Marvin Velarde Referrals: Milton Madrigal MD [Primary Care Provider] - 1 week Patient Instructions: Peripheral Vascular Disease (ED), Peripheral Artery Disease (ED) Activity Restrictions/Additional Instructions: Your evaluation ER showed you are getting no blood flow to your lower extremity on your left side. This is due to all the blood vessels being occluded or blocked. Your case has been discussed with 2 vascular surgeons 1 orthopedic surgeon and 1 hospitalist and there seems to be no medical treatment for your condition. The only treatment agreed upon every provider is amputation of the entire leg. There is no way to revascularize or bypass around the occlusions because every vessel is occluded. You have chosen not to have your leg removed by surgery. There is no medical treatment for your condition. We will place you on antibiotics to help prevent infections. We have consulted case management to arrange for a hospice evaluation for you. Please follow-up with your family physician within the next 7 days for further evaluation treatment. Print Language: Sudanese Coding Level of Care Code ED Last Picker for Alonzo Leonardo
--- NOTE | 2024-10-10 17:18 | USR_ITS ---
PROCEDURE INFORMATION: Exam: US Duplex Left Lower Extremity Veins, Limited Exam date and time: 10/10/2024 5:51 PM Age: 83 years old Clinical indication: Pain; Leg, lower; Left; Prior surgery; Surgery date: 6+ months; Surgery type: Bypass graft; Additional info: Pain smelling TECHNIQUE: Imaging protocol: Real-time duplex ultrasound of the left extremity with 2-D lugo scale, color Doppler flow and spectral waveform analysis including responses to compression and other maneuvers (when performed) with image documentation. Limited exam focused on the left lower extremity veins. COMPARISON: CR XR foot LT min 3V* [id number] 10/10/2024 5:47 PM FINDINGS: Left deep veins: Unremarkable. The common femoral, femoral, proximal profunda femoral and popliteal veins are patent without thrombus. Normal Doppler waveforms. Normal compressibility and/or augmentation response. Superficial veins: Greater saphenous vein at the saphenofemoral junction is patent without thrombus. Soft tissues: Unremarkable. US/CV venous duplex [facility] [id number] IMPRESSION: No evidence of deep vein thrombosis in the left lower extremity.
[2024-10-10 17:36] LABS: Basophils % 0.2 %; Eosinophils % 0.1 %; Hematocrit 43.9 % (37-53); Lymphocytes % 8.8 %; Mean Corpuscular HGB Conc 32.1 g/dL (30-55); Mean Corpuscular Hemoglobin 28.4 pg (27-33); Mean Corpuscular Volume 88.3 fl (82-101); Mean Platelet Volume 10.3 fL (7.4-10.4); Monocytes # 1.3 10^3/uL (0.2-0.9); Monocytes % 5.6 %; Neutrophils # 19.09 10^3/uL (1.8-7.7); Neutrophils % 84.7 %; Nucleated Red Blood Cells % 0 %; Platelet Count 374 10^3/cmm (157-399); Red Blood Count 4.97 10^6/uL (3.85-5.65); White Blood Count 22.51 10^3/uL (3.29-11.43)
[2024-10-10 17:52] LABS: Alanine Aminotransferase 61 U/L (0-41); Albumin Level 3.9 g/dL (3.5-5.2); Alkaline Phosphatase 102 U/L (40-130); Anion Gap 19.7 (5-19); Aspartate Amino Transferase 129 U/L (0-40); Blood Urea Nitrogen 25 mg/dL (8-23); C Reactive Protein 139.9 mg/L (0.0-4.9); Calcium 9.6 mg/dL (8.5-10.5); Carbon Dioxide 26 mmol/L (22-29); Chloride 89 mmol/L (98-107); Creatinine Clr Calc Pharmacy 53.1909; Globulin 3.9 g/dL (1.3-4.6); Glucose 117 mg/dL (65-115); Osmolality Calculated 277 mOsm/kg (285-295); Potassium 3.7 mmol/L (3.5-5.1); Sodium 131 mmol/L (136-145); Total Bilirubin 0.3 mg/dL (0.15-1.2); Total Protein 7.8 g/dL (6.6-8.7)
[2024-10-10 17:53] LABS: Lactic Sepsis W/Reflex 1.5 mmol/L (0.5-2.2)
[2024-10-10 18:14] LABS: Creatine Phosphokinase 3139 U/L (39-308)
[2024-10-10] MEDS: piperacillin-tazobactam 3.375 GM in sodium chloride 0.9% (plus) 50 ML IV (18:20)
[2024-10-10 18:22] LABS: Influenza A NEGATIVE (Negative); Influenza B NEGATIVE (Negative); Respiratory Syncytial Virus Ce NEGATIVE (Negative); SARS-CoV-2 PCR NEGATIVE (Negative)
[2024-10-10] MEDS: linezolid premix 600 MG/300 ML PREMIX 300 MG IV (18:52)
--- NOTE | 2024-10-10 19:09 | CTR_ITS ---
PROCEDURE INFORMATION: Exam: CTA Abdominal Aorta and Bilateral Lower Extremities (Run-off) With Contrast Exam date and time: 10/10/2024 7:29 PM Age: 83 years old Clinical indication: Numbness; Foot; Left; Additional info: Left lower extremity pad/pvd, pulseless, cold TECHNIQUE: Imaging protocol: Computed tomographic angiography of the of the abdominal aorta, pelvis and bilateral lower extremities with contrast. 3D rendering (Not supervised by radiologist): MIP and/or 3D reconstructed images were created by the technologist. Radiation optimization: All CT scans at this facility use at least one of these dose optimization techniques: automated exposure control; mA and/or kV adjustment per patient size (includes targeted exams where dose is matched to clinical indication); or iterative reconstruction. Contrast material: OMNIPAQUE 350; Contrast volume: 125 ml; Contrast route: INTRAVENOUS (IV); COMPARISON: CT kidney stone [id number] 01/20/2018 3:18 PM RADIATION DOSE METRICS: Total DLP (mGy-cm): 921.87 FINDINGS: Aorta: Severe atherosclerotic disease of the abdominal aorta and iliac arteries. Celiac trunk and mesenteric arteries: No occlusion or significant stenosis. Renal arteries: No occlusion or significant stenosis. Right iliac arteries: The right common iliac and external iliac arteries are patent. Right femoral/popliteal arteries: There is severe stenosis in the right common femoral artery secondary to calcified plaque. There is severe stenosis and occlusion in the proximal aspect of the right superficial femoral artery. The vessel reconstitutes distally. There is severe stenosis in the right popliteal artery secondary to calcified plaque. Right infrapopliteal arteries: The right anterior tibial artery is occluded just after its takeoff. The right posterior tibial and peroneal arteries are opacified down to the level of the distal calf. Left iliac arteries: The left common iliac artery, external iliac and common femoral arteries are occluded. Left femoral/popliteal arteries: The left superficial femoral artery and bypass graft are occluded. The left popliteal artery is intermittently opacified with extensive calcified plaque and severe stenosis. Left infrapopliteal arteries: The left anterior tibial and posterior tibial arteries are occluded. The left peroneal artery is intermittently opacified down to the level of the distal calf. Liver: No mass. Gallbladder and biliary ducts: Unremarkable. No calcified stones. No ductal dilation. Pancreas: Unremarkable. No mass. No ductal dilation. Spleen: Normal. No splenomegaly. Adrenal glands: There is a 1.7 cm hypodense lesion in the right adrenal gland measuring 78 Hounsfield units which is indeterminate. However, this is unchanged in size and appearance since the prior abdominal CT dated 01/20/2018 and therefore thought likely to be benign. Kidneys and ureters: Bilateral simple appearing renal cysts are present which do not need further follow-up. There is a 2.1 cm hypodense lesion in the posteromedial cortex of the right kidney measuring 35 Hounsfield units which does not meet imaging criteria for a simple cyst. A three-phase renal CT or renal MRI may be obtained for further evaluation. Alternatively a renal ultrasound may help to exclude a solid lesion. Stomach and bowel: Unremarkable. No obstruction. No mucosal thickening. Appendix: No evidence of appendicitis. Urinary bladder: Unremarkable. No mass. Reproductive: Unremarkable as visualized. Intraperitoneal space: Unremarkable. No free air. No significant fluid collection. Lymph nodes: No lymphadenopathy. Bones/joints: There is a lobulated hypodense lesion in the anterior tip of the left iliac bone measuring 2.8 x 2.1 cm (series 5, image 234). This was not present on the prior abdominal CT dated 01/20/2018 and neoplasm can not be excluded in the absence of interval trauma. Soft tissues: There is a nonobstructed bowel containing right inguinal hernia. Other findings: . CT/CT angio abd aorta runof [id number] IMPRESSION: 1. There is a 2.1 cm hypodense lesion in the posteromedial cortex of the right kidney measuring 35 Hounsfield units which does not meet imaging criteria for a simple cyst. A three-phase renal CT or renal MRI may be obtained for further evaluation. Alternatively a renal ultrasound may help to exclude a solid lesion. 2. There is a nonobstructed bowel containing right inguinal hernia. 3. There is a lobulated hypodense lesion in the anterior tip of the left iliac bone measuring 2.8 x 2.1 cm (series 5, image 234). This was not present on the prior abdominal CT dated 01/20/2018 and neoplasm can not be excluded in the absence of interval trauma. 4. The right common iliac and external iliac arteries are patent. 5. There is severe stenosis in the right common femoral artery secondary to calcified plaque. There is severe stenosis and occlusion in the proximal aspect of the right superficial femoral artery. The vessel reconstitutes distally. There is severe stenosis in the right popliteal artery secondary to calcified plaque. 6. The right anterior tibial artery is occluded just after its takeoff. The right posterior tibial and peroneal arteries are opacified down to the level of the distal calf. 7. The left common iliac artery, external iliac and common femoral arteries are occluded. 8. The left superficial femoral artery and bypass graft are occluded. 9. The left popliteal artery is intermittently opacified with extensive calcified plaque and severe stenosis. 10. The left anterior tibial and posterior tibial arteries are occluded. The left peroneal artery is intermittently opacified down to the level of the distal calf.
[2024-10-10] MEDS: iohexol 350 mg/mL 500 mL Btl (per mL) IV (19:45)
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
[2024-10-10] MEDS: ketorolac 30 mg/mL INJ IVP (20:25)
[2024-10-10] MEDS: heparin 5,000 unit/mL INJ 1 mL IVP (22:01)
[2024-10-10] MEDS: heparin drip 25,000 UNIT/500 ML PREMIX 20.07 UNIT IV (22:05)
[2024-10-11 00:31] VITALS: BP 163/88; PULSE 81; RESP 18; O2SAT 91
[2024-10-11 01:18] VITALS: BP 161/65; PULSE 81; RESP 18; O2SAT 92
== END 2024-10-11 02:08 | disposition home or self-care (01) ==
LOC: ER 17:09 → MEDSURG 18:58
PROVIDERS: Family Medicine; Emergency Provider Emergency Medicine; PCP Family Medicine
DX: I70.222 Atherosclerosis of native arteries of extremities with rest pain, left leg (principal); I25.10 Atherosclerotic heart disease of native coronary artery without angina pectoris; L03.116 Cellulitis of left lower limb; T79.6XXA Traumatic ischemia of muscle, initial encounter; X58.XXXA Exposure to other specified factors, initial encounter; Z86.73 Personal history of transient ischemic attack (TIA), and cerebral infarction without residual deficits; Z79.02 Long term (current) use of antithrombotics/antiplatelets; Z11.52 Encounter for screening for COVID-19; I10 Essential (primary) hypertension; E78.5 Hyperlipidemia, unspecified
CPT/HCPCS: 36415; 73630; 75635; 80053; 82550; 83605; 85025; 86140; 87040; 87637; 93926; 93971; 96365; 96366; 96367; 96375; 99285; J1644; J1885; J2020; J2543

== ENCOUNTER 2024-10-26 09:13 | Inpatient (IN) | payer MEDICARE, OTHER, SELFPAY ==
[2024-10-26] VITALS (19 sets, daily range): BP systolic 112–186; BP diastolic 63–101; PULSE 62–99; RESP 13–25; TEMP 36.3–36.7; O2SAT 92–99; BMI 23.0
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
[2024-10-26 09:25] LABS: Basophils # 0.1 10^3/uL (0.0-0.1); Basophils % 0.4 %; Eosinophils # 0.1 10^3/uL (0.0-0.8); Eosinophils % 0.7 %; Hematocrit 38.9 % (37-53); Lymphocytes # 2.7 10^3/uL (0.8-4.8); Lymphocytes % 18.3 %; Mean Corpuscular HGB Conc 31.9 g/dL (30-55); Mean Corpuscular Hemoglobin 27.2 pg (27-33); Mean Corpuscular Volume 85.3 fl (82-101); Mean Platelet Volume 8.9 fL (7.4-10.4); Monocytes % 6.6 %; Neutrophils # 10.86 10^3/uL (1.8-7.7); Neutrophils % 73.3 %; Nucleated Red Blood Cells % 0 %; Platelet Count 456 10^3/cmm (157-399); Red Blood Count 4.56 10^6/uL (3.85-5.65); Red Cell Distribution Width 15.9 % (12.1-15.1); White Blood Count 14.79 10^3/uL (3.29-11.43)
--- NOTE | 2024-10-26 09:32 | XR_ITS ---
WS: [id number] XR chest 1V portable [id number] REASON FOR EXAM: dyspnea/cough FINDINGS: Chest is unchanged compared to the previous examination of 02/16/2022. There is moderate tortuosity and ectasia of the thoracic aorta. Heart size is at the upper limits of normal. Calcified granulomatous disease in both hemithoraces. Fibrotic and bullous changes in the apex of the right upper lung. No acute pulmonary parenchymal or pleural abnormality. Mild degenerative spondylosis in the thoracic spine for age. XR/XR chest 1V portable [id number] IMPRESSION: Stable chest with no acute abnormality.
--- NOTE | 2024-10-26 09:32 | CT_ITS ---
WS: [id number] CT HEAD NONCONTRAST HISTORY: Loss of consciousness TECHNIQUE: Contiguous axial imaging performed through the brain. Bone and soft tissue windows. Sagittal and coronal reformats reviewed. All CT scans at [facility] use at least one of these dose optimization techniques: automated exposure control; mA and/or kV adjustment per patient size (includes targeted exams where dose is matched to clinical indication); or iterative reconstruction. DLP: 1133.58 mGy.cm COMPARISON: CT angiogram 08/01/2009 No acute intracranial hemorrhage, midline shift or mass effect. Marked severe atrophy. Large remote RIGHT occipital lobe infarct. Large prior RIGHT frontal lobe infarct. Extensive bilateral small vessel ischemic disease throughout the white matter. Lacunar infarct RIGHT olivares radiata. Ventricles: Ventricles are dilated on the basis of atrophy. No inferior displacement of the cerebellar tonsils. Calcifications in the distal vertebral and the intracranial carotid arteries. Heavy calcification burden. Paranasal sinuses: Extensive postoperative changes involving the facial bones. Mucoperiosteal thickening RIGHT frontal sinus. Mastoid air cells: Well pneumatized. Calvarium and scalp: No acute fracture or destructive bone process. Prior RIGHT posterior frontal craniotomy site. Prior trauma RIGHT globe. CT/CT head wo con* [id number] IMPRESSION: 1. No acute hemorrhage or edema. 2. Large remote RIGHT frontal and RIGHT occipital lobe infarct with encephalom alacia. 3. Advanced cerebral atrophy and small vessel disease.
[2024-10-26 09:44] LABS: ABG PCO2 37.2 mmHg (35-45); ABG PH Result 7.45 (7.35-7.45); Alveolar-Arterial Oxygen Gradi 5.2 mmHg (5-10); Arterial Blood Gas Hematocrit 36.1 % (42-52); Base Excess ABG 1.9 mmol/L (-2.0-2.0); Blood Gas Allen Test Pos; Blood Gas Operator Identificat WALCI; Blood Gas Sample Site Radial, right; Blood Gas Sample Type Arterial; Carboxyhemoglobin 1.1 %THgb (0.4-20.1); HCO3 ABG 25.9 mmol/L (22-26); HGB O2 Sat 89.9 % (95-100); Ionized Calcium Level - ABG 1.2 mmol/L (1.1-1.4); Methemoglobin 1.3 % (0.4-1.5); Oxygen Device NC; Oxygen Saturation ABG 92.1; PO2 ABG 61.9 mmHg (80.0-100.0); Potassium Level - ABG 3.3 mmol/L (3.5-5.0); Total Hemoglobin 11.8 g/dL (14-18)
[2024-10-26 09:46] LABS: Alanine Aminotransferase 16 U/L (0-41); Albumin Level 3.7 g/dL (3.5-5.2); Alkaline Phosphatase 89 U/L (40-130); Anion Gap 15.7 (5-19); Aspartate Amino Transferase 17 U/L (0-40); Blood Urea Nitrogen 18 mg/dL (8-23); Calcium 9.3 mg/dL (8.5-10.5); Carbon Dioxide 25 mmol/L (22-29); Chloride 94 mmol/L (98-107); Creatinine Clr Calc Pharmacy 54.7304; Globulin 3.3 g/dL (1.3-4.6); Glucose 156 mg/dL (65-115); Osmolality Calculated 277 mOsm/kg (285-295); Potassium 3.7 mmol/L (3.5-5.1); Sodium 131 mmol/L (136-145); Total Bilirubin 0.4 mg/dL (0.15-1.2)
[2024-10-26 09:47] LABS: Magnesium 2.1 mg/dL (1.7-2.3)
--- NOTE | 2024-10-26 09:53 | PC.PHAR ---
patient is from [facility], not with patient when he got here with EMS, called and requested med list. will finish med list when sent over
[2024-10-26 11:44] LABS: Ammonia 16 umol/L (16-60); Creatine Phosphokinase 47 U/L (39-308)
[2024-10-26] MEDS: sodium chloride 0.9% 1,000 ML 999 ML IV (12:35)
--- NOTE | 2024-10-26 13:06 | ECG_ITS ---
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 Measurements Intervals [place] Rate: 71 P: -23 MN: 163 QRS: 126 QRSD: 101 T: -15 QT: 430 QTc: 468 Interpretive Statements SINUS RHYTHM POSSIBLE RIGHT VENTRICULAR HYPERTROPHY [SOME/ALL OF: PROMINENT R IN V1, LATE TRANSITION, RAD, JUNITO, SSS] ABNORMAL QRS-T ANGLE [QRS-T AXIS DIFFERENCE > 60] Compared to ECG 04/10/2015 14:15:06 Myocardial infarct finding no longer present Electronically Signed On 10-27-2024 18:02:07 ANALYTICS ARCHITECT by Matti Mendieta M.D. [email or web address]
[2024-10-26 13:12] LABS: Troponin(5th) Baseline 23 ng/L (0-15)
[2024-10-26 13:17] LABS: Influenza A NEGATIVE (Negative); Influenza B NEGATIVE (Negative); Respiratory Syncytial Virus Ce NEGATIVE (Negative); SARS-CoV-2 PCR NEGATIVE (Negative)
[2024-10-26 13:45] LABS: Troponin 5 2HR 18.45 ng/L (0-15)
[2024-10-26 13:54] LABS: Troponin 5 2HR Delta -4.55 ABS# (0-10)
--- NOTE | 2024-10-26 14:40 | ECG_ITS ---
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 Measurements Intervals [place] Rate: 76 P: 80 ID: [id number] QRS: -57 QRSD: 97 T: 80 QT: 428 QTc: 481 Interpretive Statements SINUS RHYTHM LEFT AXIS DEVIATION [QRS AXIS < -30] INCOMPLETE RIGHT BUNDLE BRANCH BLOCK [90+ ms QRS DURATION, TERMINAL R IN V1/V2, 40+ ms S IN I/aVL/V4/V5/V6] Compared to ECG 10/26/2024 13:06:46 Left-axis deviation now present Incomplete right bundle-branch block now present Electronically Signed On 10-27-2024 19:31:15 EDUCATION REPORTER by Matti Mendieta M.D. [email or web address]
[2024-10-26 15:00] LABS: Bilirubin Urine Negative (Negative); Blood Urine 3+ (Negative); Glucose Urine UA Negative (Normal); Ketones Urine Negative (Negative); Leukocyte Esterase Urine 3+ (Negative); Nitrate Urine Positive (Negative); Protein Urine 2+ (Negative); Specific Gravity, Urine 1.014 (1.005-1.030); Urine Appearance Turbid (CLEAR); pH Urine 6.5 (5-7)
[2024-10-26 15:03] LABS: Add Urine Microscopic? YES; Bacteria Urine 4+ /hpf; Hyaline Casts Urine 4.84 /lpf; RBC Urine >100 /hpf (0-2); Squamous Epithelial Cell Urine 0-5 /hpf (0-5); WBC Urine >100 /hpf (0-5)
[2024-10-26 15:17] LABS: Urine Color Red (Yellow)
[2024-10-26 15:19] LABS: Add Urine Culture? Yes
[2024-10-26] MEDS: piperacillin-tazobactam 3.375 GM in sodium chloride 0.9% (plus) 50 ML IV (17:10)
--- NOTE | 2024-10-26 17:26 | CTR_ITS ---
PROCEDURE INFORMATION: Exam: CT Abdomen And Pelvis With Contrast Exam date and time: 10/26/2024 5:40 PM Age: 83 years old Clinical indication: Abnormal findings; Abnormal lab test; Abnormal function test of other organs/systems and elevated wbc; Prior surgery; Surgery date: 6+ months; Surgery type: Lumbar laminectomy. Wbc of 15k. Microhematuria and nitrate positive. ; Additional info: Pyelonephritis TECHNIQUE: Imaging protocol: Computed tomography of the abdomen and pelvis with contrast. Radiation optimization: All CT scans at this facility use at least one of these dose optimization techniques: automated exposure control; mA and/or kV adjustment per patient size (includes targeted exams where dose is matched to clinical indication); or iterative reconstruction. Contrast material: OMNI 350; Contrast volume: 100 ml; Contrast route: INTRAVENOUS (IV); COMPARISON: CT kidney stone [id number] 01/20/2018 3:18 PM RADIATION DOSE METRICS: Total DLP (mGy-cm): 455.12 FINDINGS: Lungs: Mild left posterior lower lobe consolidation. Mild right posterior lower lobe atelectasis. Heart: Heart size is within normal limits. There is no pericardial effusion or pericardial thickening. Liver: Hepatic low-density lesions, too small to characterize though likely representing small cysts. Liver is otherwise normal. Gallbladder and biliary ducts: The gallbladder is normal. There is no ductal dilatation. Pancreas: The pancreas is normal. Spleen: The spleen is normal. Adrenal glands: 14 mm left adrenal nodule, stable compared to 2018 consistent with benign lesion. The adrenals are otherwise normal. Kidneys and ureters: Normal enhancement of the kidneys. Questionable bilateral nonobstructing renal calculi may be vascular in origin. Multiple bilateral renal cysts are present. Renal too small Stomach and bowel: Multiple prominent fluid-filled segments of small bowel without definitive evidence of obstruction. No other areas of bowel wall thickening. Appendix: Portions of a normal appendix are identified. There is no definitive secondary evidence of acute appendicitis. Intraperitoneal space: No pneumoperitoneum. No free fluid or fluid collections. Increased soft tissue density in the mesenteric fat just lateral to the expected location of the mid ascending colon which may represent inflammatory change. 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 Atherosclerotic calcifications of the aorta are present. No aneurysm is identified. Lymph nodes: No enlarged lymph nodes are identified. Urinary bladder: Mildly distended urinary bladder. Reproductive: Moderate prostatomegaly. Bones/joints: Multiple stable compression fractures of the lumbar spine. No acute osseous abnormalities are seen. Soft tissues: Small bilateral inguinal hernias containing only fat are present. CT/CT abdomen pelvis w con* [id number] IMPRESSION: 1. Apparent inflammatory change just lateral to the expected location of the mid ascending colon. There may be interposed small bowel in this region. Nonspecific finding. Differential diagnosis includes but is not limited to focal colitis, focal enteritis, and omental infarction. Recommend short interval follow-up as clinically indicated. Repeat CT with oral contrast could also be considered. 2. Mild left posterior lower lobe consolidation. 3. Other nonemergent findings above. COMMENTS: Consistent with the [employer]'s Incidental Findings Committee white paper (J Am Anastasia Radiol 2018): Any incidental renal lesion less than 1 cm or classified as too small to characterize, or any incidental cystic renal lesion characterized as simple-appearing, is likely benign. No follow-up imaging is recommended for these lesions per consensus recommendations based on imaging criteria.
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
--- NOTE | 2024-10-26 18:11 | ECG_ITS ---
[facility] Test Date: 2024-10-26 Pat Name: Charanjit Alan Department: Room: ED Gender: Male Prop Sawyer: : 1940 Requested By: Juni Faria Order Number: [id number] Priya MD: Matti Mendieta M.D. Measurements Intervals [place] Rate: 99 P: -22 WV: 153 QRS: 142 QRSD: 95 T: -22 QT: 366 QTc: 470 Interpretive Statements SINUS RHYTHM WITH OCCASIONAL VENTRICULAR PREMATURE COMPLEXES INCOMPLETE RIGHT BUNDLE BRANCH BLOCK [90+ ms QRS DURATION, TERMINAL R IN V1/V2, 40+ ms S IN I/aVL/V4/V5/V6] RIGHT VENTRICULAR HYPERTROPHY [SOME/ALL OF: PROMINENT R IN V1, LATE TRANSITION, RAD, JUNITO, SSS] ABNORMAL QRS-T ANGLE [QRS-T AXIS DIFFERENCE > 60] Compared to ECG 10/26/2024 14:12:30 Ventricular premature complex(es) now present Atrial abnormality now present Right ventricular hypertrophy now present Left-axis deviation no longer present Electronically Signed On 10-27-2024 19:29:46 THEATRICAL DRESSER by Matti Mendieta M.D. [email or web address]
[2024-10-26 18:24] LABS: Troponin 5 6HR 20.29 ng/L (0-15); Troponin 5 6HR Delta -2.71 ng/L (0-12)
[2024-10-26 18:33] LABS: Procalcitonin 0.08 ng/mL (0-0.5)
[2024-10-26] MEDS: pantoprazole 40 mg SDV IVP (21:32)
[2024-10-26] MEDS: HYDROcodone-acetaminophen 5-325 mg Tablet 1 TAB PO (21:32)
[2024-10-26] MEDS: docusate sodium 100 mg Capsule PO (21:33)
[2024-10-26] MEDS: temazepam 15 mg Capsule 30 MG PO (21:33)
[2024-10-26] MEDS: sodium chloride 0.9% 1,000 ML 75 ML IV (21:33)
[2024-10-26] MEDS: heparin 5,000 unit/mL INJ 1 mL 5000 UNIT SUBCUT (21:34)
[2024-10-26 21:43] LABS: Iron 46 ug/dL (59-158); Percent Saturation 15.3 % (20-50); Thyroid Stimulating Hormone 1.49 uIU/mL (0.27-4.20); Total Iron Binding Capacity 299 mcg/dl; Unsaturated Iron Binding 253 ug/dL (112-347); Vitamin B12 713 pg/mL (232-1245)
[2024-10-26 23:03] LABS: MRSA PCR OZH (swab) NOT DETECTED (Negative)
[2024-10-26 23:53] LABS: Estmated Average Glucose 114; Hemoglobin A1C 5.6 % (4.0-6.0)
[2024-10-27] VITALS (9 sets, daily range): BP systolic 123–177; BP diastolic 70–82; PULSE 73–88; RESP 14–19; TEMP 36.4–36.8; O2SAT 92–97; BMI 2920.6; BMI 20.2
[2024-10-27 05:28] LABS: Basophils # 0.1 10^3/uL (0.0-0.1); Basophils % 0.5 %; Eosinophils % 0.2 %; Hematocrit 33.6 % (37-53); Lymphocytes # 2.3 10^3/uL (0.8-4.8); Lymphocytes % 11.9 %; Mean Corpuscular HGB Conc 32.1 g/dL (30-55); Mean Corpuscular Hemoglobin 27.9 pg (27-33); Mean Corpuscular Volume 86.8 fl (82-101); Mean Platelet Volume 10.2 fL (7.4-10.4); Monocytes # 1.1 10^3/uL (0.2-0.9); Monocytes % 5.4 %; Neutrophils # 15.75 10^3/uL (1.8-7.7); Neutrophils % 81.4 %; Nucleated Red Blood Cells % 0 %; Platelet Count 405 10^3/cmm (157-399); Red Blood Count 3.87 10^6/uL (3.85-5.65); Red Cell Distribution Width 16.3 % (12.1-15.1); White Blood Count 19.35 10^3/uL (3.29-11.43)
[2024-10-27] MEDS: piperacillin-tazobactam 3.375 GM in sodium chloride 0.9% (plus) 50 ML IV ×3 (05:33→20:39)
[2024-10-27 06:05] LABS: Procalcitonin 0.24 ng/mL (0-0.5)
[2024-10-27 06:12] LABS: Folate Level 14.2 ng/mL (4.5-32.2)
[2024-10-27 06:18] LABS: Alanine Aminotransferase 10 U/L (0-41); Alkaline Phosphatase 70 U/L (40-130); Anion Gap 12.9 (5-19); Aspartate Amino Transferase 11 U/L (0-40); Blood Urea Nitrogen 17 mg/dL (8-23); Calcium 8.3 mg/dL (8.5-10.5); Carbon Dioxide 23 mmol/L (22-29); Chloride 102 mmol/L (98-107); Chol HDL Ratio 2.83 mg/dL (1.0-5.00); Cholesterol 119 mg/dL (0-200); Creatinine Clr Calc Pharmacy 63.6879; Globulin 2.5 g/dL (1.3-4.6); Glucose 87 mg/dL (65-115); HDL Cholesterol 42 mg/dL (60-100); LDL Cholesterol Calculated 63 mg/dL (50-129); Osmolality Calculated 279 mOsm/kg (285-295); Phosphorus 3.1 mg/dL (2.5-4.5); Potassium 3.9 mmol/L (3.5-5.1); Sodium 134 mmol/L (136-145); Total Bilirubin 0.4 mg/dL (0.15-1.2); Total Protein 5.5 g/dL (6.6-8.7); Triglycerides 69 mg/dL (0-150)
[2024-10-27] MEDS: tamsulosin 0.4 mg Capsule PO (09:59)
[2024-10-27] MEDS: heparin 5,000 unit/mL INJ 1 mL 5000 UNIT SUBCUT ×2 (09:59→20:40)
[2024-10-27] MEDS: docusate sodium 100 mg Capsule PO ×2 (09:59→17:35)
[2024-10-27] MEDS: clopidogrel 75 mg Tablet PO (09:59)
[2024-10-27] MEDS: gabapentin 300 mg Capsule PO (09:59)
--- NOTE | 2024-10-27 10:48 | PC.CHAP ---
Pastoral Care Encounter/Spiritual Assessment Type of Contact [] Declined reference services head visit [] Patient/Family/Request visit [] Outpatient visit [] Follow-up visit [] Physician referral [] Code/Alert [] Routine visit [] Staff referral [] Actively dying [] Patient sleeping [] Family support [] [] Out of room [] Palliative care [] [] Receiving care in room [] Pre-surgical visit [] Trauma [] Long length of stay [] ICU visit [] Other:STOP Relational/Emotional Strength [] Patient feels connected with others/family/visitors/staff [] Distress [] Loneliness/isolation [] Abandonment Spirituality of Patient [] Person of [place] [] Attends Pentecostalism of their [place] [] Believes in Prayer [] Reads Bible or Buddhist materials [] There are Spiritual issues to be addressed Funeral Attendant Interventions [] Prayer [] Active listening [] Non-anxious presence [] Spiritual/emotional support [] Crisis/trauma care [] Spiritual counseling [] Bereavement support [] Provided bereavement packet [] Provided Bible/devotional materials [] Provided toy/stuffed animal, coloring book to patient or family member [] Provided Communion [] Anointing/[place] [] Salvation [] Completed spiritual assessment [] Other: Impact on Illness or Injury [] Angry [] Fearful [] Anxious [] Often cries [] Exhaustion [] Unable to work [] Unable to attend yazidism [] Unable to walk/stand [] Unable to read [] Unable to drive [] Unable to eat/drink [] Unable to sleep [] Unable to be with family [] Patient intubated [] Other: Summary Time spent with patient
[2024-10-27 12:19] LABS: Glucose Point of Care 100 mg/dL (70-110)
--- NOTE | 2024-10-27 15:58 | P.PN_ITS ---
Subjective 2 Subjective: No acute events overnight. Patient denies any nausea, vomiting, headache. Complaining of persistent pain in the right flank region. States dysuria is improving. Vitals/I&O/Wt Last Vital Signs Temp 98.0 F 10/27/24 12:00 Pulse 74 10/27/24 12:00 Resp 14 10/27/24 12:00 BP 123/82 10/27/24 12:00 Pulse Ox 93 10/27/24 12:00 O2 Del Method Nasal Cannula 10/27/24 12:00 O2 Flow Rate 3 10/27/24 03:24 10/27/24 10/27/24 10/27/24 06:59 14:59 22:59 Intake Total 1530 / 1530 Output Total 200 / 350 Balance -200 / 700 1530 / 1530 Weight last 48 hrs Weight 67.84 kg Weight 67.84 kg Weight 67.84 kg Weight 77.111 kg Physical Exam 2 Narrative: General: In mild acute distress, AO x3, chronically sick appearing HEENT: PERRLA, pupils bilaterally equal and reactive Chest: Bilateral bronchial breath sounds with occasional rhonchi all over lung figueroa, equal good air entry bilaterally CVS: S1-S2 regular, no murmurs, no tachycardia, no gallops, no rubs Abdomen: Soft, nontender, no organomegaly, bowel sounds present Right renal angle tenderness Neuro: No focal deficits, no facial deformity, AO x3, Extremity: Left below-knee amputation Data 10/27/24 02:35 10/27/24 02:35 Micro: Microbiology 10/26/24 11:22 Blood Culture - Preliminary Blood NEGATIVE TO DATE 10/26/24 11:15 Blood Culture - Preliminary Blood NEGATIVE TO DATE 10/26/24 13:57 Urine Culture - Preliminary Urine,Clean Catch Gram Negative Rods 10/26/24 13:57 Bacterial Antigens - Final Urine Kidney A&P Assessment and plan (1) Encephalopathy: (2) Sepsis: (3) UTI (urinary tract infection): (4) Hypertension: (5) CAD (coronary artery disease): (6) Colitis: Plan Encephalopathy: Most likely acute metabolic encephalopathy in setting of possible sepsis. Resolved. No past history of seizures. Fall precaution, seizure precautions. Frequent reorientation. Monitor for aspiration. Sepsis SIRS: Tachycardic, Febrile, Leukocytosis Source: UTI, possible pyelonephritis/colitis End organ damage: Acute metabolic encephalopathy Lactic acid within normal limits Continue with NS at 75 cc/h. Monitor blood pressures. Keep mean artery pressure 65 mmHg. Follow-up blood culture, urine culture, negative MRSA swab, negative trend procalcitonin. UTI: UA concerning for UTI. Patient continues to have right flank pain. Appreciate past cultures. History of UTI with Pseudomonas. IV Zosyn for now. Appreciate CT abdomen pelvis. No concerns for obstructive nephropathy. Not a contrast study so cannot rule out pyelonephritis. Does have concern for colitis. Colitis: As seen on CT abdomen pelvis. Lactate normal. Check stool studies. Rule out C. difficile. For now continue with IV Zosyn which would also cover for colitis. Hypertension: Goal blood pressure less than 140/90 mmHg. Hold off on antihypertensives including hydralazine and lisinopril for now. Will restart as per goal blood sugars. History of CAD: Denies any chest pain for now. Continue with home dose of Plavix, statin. Recent history of acute limb ischemia of the left leg. Post below-knee left-sided amputation. CODE STATUS: As per the paperwork from the long term. Full code. Patient's son Abraham Blanton, GAMALOA. Regular diet Protonix for PUD prophylaxis Heparin for DVT prophylaxis. PDMP PDMP Reviewed: Not Reviewed Attestations 2 Medical Necessity Statement*: Requires further hospitalization for management of sepsis in setting of UTI, colitis Diagnoses Encephalopathy G93.40 Sepsis A41.9 UTI (urinary tract infection) N39.0 Hypertension I10 CAD (coronary artery disease) I25.10 Colitis K52.9
[2024-10-27] MEDS: atorvastatin 40 mg Tablet PO (17:35)
[2024-10-27] MEDS: HYDROcodone-acetaminophen 5-325 mg Tablet 1 TAB PO (17:38)
[2024-10-27] MEDS: pantoprazole 40 mg SDV IVP (20:38)
[2024-10-27] MEDS: temazepam 15 mg Capsule 30 MG PO (20:38)
--- NOTE | 2024-10-27 20:46 | USCV_ITS ---
Charanjit Alan Age: 83 Gender: M : 1940 Exam Date: 10/27/2024 09:18 Ordering Phys: Norman Cerda MD Technologist: Harish Gambino [place] [facility] [place]: chf BP: 177 / 82 HR: 68 Rhythm: Sinus Technical Quality: Adequate MEASUREMENTS (Male / Female) Normal Values 2D ECHO LV Diastolic Diameter PLAX 4.5 cm 4.2 - 5.9 / 3.9 - 5.3 cm IVS Diastolic Thickness 1.2 cm 0.6 - 1.0 / 0.6 - 0.9 cm IVS Systolic Thickness 1.4 cm LVPW Diastolic Thickness 1.5 cm 0.6 - 1.0 / 0.6 - 0.9 cm LVPW Systolic Thickness 1.9 cm LVOT Diameter 2.2 cm LV Ejection Fraction 2D Teich 58.5 % LV Ejection Fraction MOD 4C 65.9 % LV Ejection Fraction MOD 2C 65.8 % LV Ejection Fraction 2C AL 68.6 % LA Diameter 3.4 cm RA Systolic Volume 4C AL 30.6 ml RA Systolic Volume 4C MOD 29.4 ml LA Sys Volume AL 37.2 cm cubed LA Sys Volume Index AL 20.2 cm cubed/m squared Aorta at Sinotubular Diameter 2.8 cm IVC Diameter 1.8 cm M-MODE LA Ao Ratio MM 1.3 AV Cusp Separation MM 1.1 cm DOPPLER AV Peak Velocity 251.0 cm/s LVOT Peak Velocity 109.0 cm/s AV Area Cont Eq vti 1.3 cm squared AV Area Cont Eq pk 1.6 cm squared MV Peak Velocity 106.0 cm/s MV Area PHT 2.9 cm squared Mitral E to A Ratio 0.7 TR Peak Velocity 247.0 cm/s TR Peak Gradient 24.4 mmHg TR Mean Velocity 181.0 cm/s TR Mean Gradient 14.4 mmHg TR Velocity Time Integral 53.8 cm PV Peak Velocity 76.0 cm/s RV Ejection Time 0.2 s FINDINGS Left Ventricle Left ventricle is normal in size. LV systolic function is normal with EF of 55-60%. No regional wall motion abnormalities. Grade 1 diastolic dysfunction. Right Ventricle Normal in size and function Right Atrium Normal in size Left Atrium Normal in size Mitral Valve Structurally normal mitral valve. Mild mitral regurgitation. Aortic Valve Aortic valve is thickened. Mild aortic stenosis with aortic valve area of 1.29cm2 with mean gradient of 15.78mmHg. Trace aortic regurgitation. Tricuspid Valve Mild tricuspid regurgitation. Pulmonary artery systolic pressure is normal Pulmonic Valve Not well visualized Pericardium Normal Aorta Normal in size IVC Appears to be normal. CONCLUSIONS LV systolic function is normal with EF of 55-60% Grade 1 diastolic dysfunction Mild mitral regurgitation Mild aortic stenosis with aortic valve area of 1.29cm2 with mean gradient of 15.78mmHg. Trace aortic regurgitation. Mild tricuspid regurgitation Matti Mendieta MD (Electronically Signed) Final Date: 27 October 2024 12:38 S
[2024-10-28] VITALS (10 sets, daily range): BP systolic 131–192; BP diastolic 72–85; PULSE 62–83; RESP 16–20; TEMP 36.3–36.9; O2SAT 90–98
[2024-10-28] MEDS: piperacillin-tazobactam 3.375 GM in sodium chloride 0.9% (plus) 50 ML IV ×3 (04:45→21:06)
[2024-10-28 04:51] LABS: Basophils # 0.1 10^3/uL (0.0-0.1); Basophils % 0.4 %; Eosinophils # 0.1 10^3/uL (0.0-0.8); Eosinophils % 0.9 %; Hematocrit 34.4 % (37-53); Lymphocytes # 2.1 10^3/uL (0.8-4.8); Lymphocytes % 14.9 %; Mean Corpuscular HGB Conc 31.7 g/dL (30-55); Mean Corpuscular Hemoglobin 28.2 pg (27-33); Mean Corpuscular Volume 88.9 fl (82-101); Mean Platelet Volume 10.1 fL (7.4-10.4); Monocytes # 1.2 10^3/uL (0.2-0.9); Monocytes % 8.5 %; Neutrophils % 74.7 %; Nucleated Red Blood Cells % 0 %; Platelet Count 400 10^3/cmm (157-399); Red Blood Count 3.87 10^6/uL (3.85-5.65); Red Cell Distribution Width 16.3 % (12.1-15.1); White Blood Count 13.93 10^3/uL (3.29-11.43)
[2024-10-28 05:04] LABS: Alanine Aminotransferase 9 U/L (0-41); Alkaline Phosphatase 69 U/L (40-130); Anion Gap 14.1 (5-19); Aspartate Amino Transferase 12 U/L (0-40); Blood Urea Nitrogen 21 mg/dL (8-23); Calcium 8.9 mg/dL (8.5-10.5); Carbon Dioxide 24 mmol/L (22-29); Chloride 99 mmol/L (98-107); Creatinine Clr Calc Pharmacy 57.0422; Glucose 96 mg/dL (65-115); Magnesium 1.9 mg/dL (1.7-2.3); Osmolality Calculated 279 mOsm/kg (285-295); Phosphorus 3.1 mg/dL (2.5-4.5); Potassium 4.1 mmol/L (3.5-5.1); Sodium 133 mmol/L (136-145); Total Bilirubin 0.3 mg/dL (0.15-1.2)
[2024-10-28] MEDS: heparin 5,000 unit/mL INJ 1 mL 5000 UNIT SUBCUT ×2 (10:13→21:08)
[2024-10-28] MEDS: gabapentin 300 mg Capsule PO (10:14)
[2024-10-28] MEDS: atorvastatin 40 mg Tablet PO (10:14)
[2024-10-28] MEDS: tamsulosin 0.4 mg Capsule PO (10:14)
[2024-10-28] MEDS: clopidogrel 75 mg Tablet PO (10:14)
[2024-10-28] MEDS: docusate sodium 100 mg Capsule PO ×2 (10:14→18:23)
[2024-10-28 12:10] LABS: C.Diff PCR (Lab) NEGATIVE (Negative)
--- NOTE | 2024-10-28 13:31 | P.PN_ITS ---
Subjective 2 Subjective: No acute events overnight. Patient laying comfortably in bed. States feeling better. Abdominal pain is improved. Had bowel movements today morning and last night. No diarrhea reported though. Denies any nausea, vomiting, headache. Awake and alert on examination. Vitals/I&O/Wt Last Vital Signs Temp 98.3 F 10/28/24 12:00 Pulse 75 10/28/24 12:00 Resp 16 10/28/24 12:00 BP 169/77 10/28/24 12:00 Pulse Ox 98 10/28/24 12:00 O2 Del Method Room Air 10/28/24 12:00 O2 Flow Rate 3 10/27/24 03:24 10/27/24 10/28/24 10/28/24 22:59 07:59 14:59 Intake Total 290 / 1820 50 / 1870 290 / 290 Output Total 500 / 500 Balance 290 / 1820 -450 / 1370 290 / 290 Weight last 48 hrs Weight 66.95 kg Weight 67.84 kg Weight 67.84 kg Weight 67.84 kg Physical Exam 2 Narrative: General: In mild acute distress, AO x3, chronically sick appearing HEENT: PERRLA, pupils bilaterally equal and reactive Chest: Bilateral bronchial breath sounds with occasional rhonchi all over lung figueroa, equal good air entry bilaterally CVS: S1-S2 regular, no murmurs, no tachycardia, no gallops, no rubs Abdomen: Soft, nontender, no organomegaly, bowel sounds present Right renal angle tenderness Neuro: No focal deficits, no facial deformity, AO x3, Extremity: Left below-knee amputation Data 10/28/24 04:04 10/28/24 04:04 Micro: Microbiology 10/27/24 11:09 Stool Lactoferrin - Final Stool Occult Blood (FIT) - Final 10/26/24 11:22 Blood Culture - Preliminary Blood NEGATIVE TO DATE 10/26/24 11:15 Blood Culture - Preliminary Blood NEGATIVE TO DATE 10/26/24 13:57 Urine Culture - Preliminary Urine,Clean Catch Gram Negative Rods 10/26/24 13:57 Bacterial Antigens - Final Urine Kidney A&P Assessment and plan (1) Encephalopathy: (2) Sepsis: (3) UTI (urinary tract infection): (4) Hypertension: (5) CAD (coronary artery disease): (6) Colitis: Plan Encephalopathy: Most likely acute metabolic encephalopathy in setting of possible sepsis. Resolved. No past history of seizures. Fall precaution, seizure precautions. Frequent reorientation. Monitor for aspiration. Sepsis SIRS: Tachycardic, Febrile, Leukocytosis Source: UTI, possible pyelonephritis/colitis End organ damage: Acute metabolic encephalopathy Lactic acid within normal limits Continue with NS at 75 cc/h. Monitor blood pressures. Keep mean artery pressure 65 mmHg. Follow-up blood culture, urine culture, negative MRSA swab, negative trend procalcitonin. UTI: UA concerning for UTI. Patient continues to have right flank pain. Appreciate past cultures. History of UTI with Pseudomonas. IV Zosyn for now. Appreciate CT abdomen pelvis. No concerns for obstructive nephropathy. Not a contrast study so cannot rule out pyelonephritis. Does have concern for colitis. Colitis: As seen on CT abdomen pelvis. Lactate normal. Check stool studies. Rule out C. difficile. For now continue with IV Zosyn which would also cover for colitis. Hypertension: Goal blood pressure less than 140/90 mmHg. Hold off on antihypertensives including hydralazine and lisinopril for now. Will restart as per goal blood sugars. History of CAD: Denies any chest pain for now. Continue with home dose of Plavix, statin. Recent history of acute limb ischemia of the left leg. Post below-knee left-sided amputation. CODE STATUS: As per the paperwork from the correction. Full code. Patient's son Abraham Blanton, GAMALOA. Regular diet Protonix for PUD prophylaxis Heparin for DVT prophylaxis. Plan for the day: Continue IV Zosyn. Stool studies when available. Less likely C. difficile. Goal blood pressure less than 140/90 mmHg. Blood pressure slightly elevated. Start on lisinopril at 20 mg once daily. Uptitrate as per goal blood pressure. Stump dressing with bacitracin. Will consult wound care nurse. Stop IV fluids. PDMP PDMP Reviewed: Not Reviewed Attestations 2 Medical Necessity Statement*: Requires further hospitalization for management of sepsis in setting of UTI, colitis Diagnoses Encephalopathy G93.40 Sepsis A41.9 UTI (urinary tract infection) N39.0 Hypertension I10 CAD (coronary artery disease) I25.10 Colitis K52.9
[2024-10-28] MEDS: bacitracin ointment Pkt 1 EACH TOPICAL ×2 (14:45→21:08)
[2024-10-28] MEDS: lisinopril 20 mg Tablet PO (14:45)
[2024-10-28] MEDS: pantoprazole 40 mg SDV IVP (21:08)
[2024-10-28] MEDS: temazepam 15 mg Capsule 30 MG PO (21:08)
[2024-10-29] VITALS (13 sets, daily range): BP systolic 101–161; BP diastolic 59–80; PULSE 65–83; RESP 16–17; TEMP 36.3–36.9; O2SAT 94–99
[2024-10-29 03:09] LABS: Basophils # 0.1 10^3/uL (0.0-0.1); Basophils % 0.3 %; Eosinophils # 0.2 10^3/uL (0.0-0.8); Eosinophils % 0.9 %; Hematocrit 35.5 % (37-53); Lymphocytes # 2.3 10^3/uL (0.8-4.8); Lymphocytes % 13.9 %; Mean Corpuscular Hemoglobin 28.3 pg (27-33); Mean Corpuscular Volume 85.7 fl (82-101); Mean Platelet Volume 9.8 fL (7.4-10.4); Monocytes # 1.3 10^3/uL (0.2-0.9); Monocytes % 7.9 %; Neutrophils # 12.52 10^3/uL (1.8-7.7); Neutrophils % 76.3 %; Nucleated Red Blood Cells % 0 %; Platelet Count 362 10^3/cmm (157-399); Red Blood Count 4.14 10^6/uL (3.85-5.65); Red Cell Distribution Width 16.2 % (12.1-15.1)
[2024-10-29 03:38] LABS: Alanine Aminotransferase 13 U/L (0-41); Albumin Level 3.3 g/dL (3.5-5.2); Alkaline Phosphatase 75 U/L (40-130); Anion Gap 13.2 (5-19); Aspartate Amino Transferase 16 U/L (0-40); Blood Urea Nitrogen 22 mg/dL (8-23); Calcium 8.9 mg/dL (8.5-10.5); Carbon Dioxide 25 mmol/L (22-29); Chloride 98 mmol/L (98-107); Creatinine Clr Calc Pharmacy 63.3802; Globulin 2.6 g/dL (1.3-4.6); Glucose 103 mg/dL (65-115); Osmolality Calculated 278 mOsm/kg (285-295); Phosphorus 3.3 mg/dL (2.5-4.5); Potassium 4.2 mmol/L (3.5-5.1); Sodium 132 mmol/L (136-145); Total Bilirubin 0.3 mg/dL (0.15-1.2); Total Protein 5.9 g/dL (6.6-8.7)
[2024-10-29] MEDS: piperacillin-tazobactam 3.375 GM in sodium chloride 0.9% (plus) 50 ML IV ×3 (04:04→21:07)
[2024-10-29] MEDS: gabapentin 300 mg Capsule PO (08:53)
[2024-10-29] MEDS: lisinopril 20 mg Tablet PO (08:53)
[2024-10-29] MEDS: docusate sodium 100 mg Capsule PO ×2 (08:53→18:25)
[2024-10-29] MEDS: tamsulosin 0.4 mg Capsule PO (08:53)
[2024-10-29] MEDS: atorvastatin 40 mg Tablet PO (08:54)
[2024-10-29] MEDS: clopidogrel 75 mg Tablet PO (08:54)
[2024-10-29] MEDS: heparin 5,000 unit/mL INJ 1 mL 5000 UNIT SUBCUT ×2 (08:55→21:07)
[2024-10-29] MEDS: bacitracin ointment Pkt 1 EACH TOPICAL ×3 (08:55→21:07)
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
--- NOTE | 2024-10-29 18:33 | PC.NURSE ---
Addendum entered by Ivette Jo RN 10/29/24 19:20: Dressing change is once per day not twice per Kodi Licona. Original Note: Kodi Licona from Wound Care stated to Change Stump dressing twice daily. Clean with NS and guaze, apply betadine on red area and bacitracin (scant amount) on other area per Wound Care/ Dr. Wetzel
--- NOTE | 2024-10-29 19:41 | P.PN_ITS ---
Subjective 2 Subjective: No new clinical events overnight. No fever, chills, nausea or vomiting. Vitals/I&O/Wt Last Vital Signs Temp 98.5 F 10/29/24 18:28 Pulse 75 10/29/24 17:03 Resp 16 10/29/24 17:03 BP 151/71 10/29/24 17:03 Pulse Ox 99 10/29/24 17:03 O2 Del Method Room Air 10/29/24 17:03 O2 Flow Rate 2 10/29/24 11:10 10/29/24 10/29/24 10/29/24 06:59 14:59 22:59 Intake Total 50 / 750.000 50 / 50 240 / 290 Output Total 200 / 200 200 / 400 Balance 50 / 575.000 -150 / -150 40 / -110 Weight last 48 hrs Weight 64.546 kg Weight 66.95 kg Physical Exam 2 Narrative: General: In mild acute distress, AO x3, chronically sick appearing HEENT: PERRLA, pupils bilaterally equal and reactive Chest: Bilateral bronchial breath sounds with occasional rhonchi all over lung figueroa, equal good air entry bilaterally CVS: S1-S2 regular, no murmurs, no tachycardia, no gallops, no rubs Abdomen: Soft, nontender, no organomegaly, bowel sounds present Right renal angle tenderness Neuro: No focal deficits, no facial deformity, AO x3, Extremity: Left below-knee amputation Data 10/29/24 02:40 10/29/24 02:40 Micro: Microbiology 10/26/24 13:57 Urine Culture - Final Urine,Clean Catch Pseudomonas aeruginosa A&P Assessment and plan (1) Encephalopathy: (2) Sepsis: (3) UTI (urinary tract infection): (4) Hypertension: (5) CAD (coronary artery disease): (6) Colitis: Plan Right Lower Extremity Amputation - Status post right lower extremity amputation 14 days ago, now post-operative day 14. - Stump appears clean and dry with sutures in place. Differential Diagnosis: 1. Healing surgical site. 2. Possible early superficial infection, though no overt signs noted. Plan: 1. wound care consult 2. Continue IV abx for now 3. D/W surgery - keep sutures in Possible UTi - SIRs on admission 1. Continue IV zosyn for now Debilitated State - Requires assistance with activities of daily living and transfers. Plan: 1. Physical therapy and occupational therapy to work on strengthening, mobility, and self-care. PDMP PDMP Reviewed: Not Reviewed Attestations 2 Medical Necessity Statement*: Requires further hospitalization for management of sepsis in setting of UTI, colitis Coding Level of Care Code Acute Code for Chg Fwd Diagnoses Encephalopathy G93.40 Sepsis A41.9 UTI (urinary tract infection) N39.0 Hypertension I10 CAD (coronary artery disease) I25.10 Colitis K52.9
[2024-10-29] MEDS: temazepam 15 mg Capsule 30 MG PO (21:06)
[2024-10-29] MEDS: acetaminophen 325 mg Tablet 650 MG PO (21:06)
[2024-10-29] MEDS: pantoprazole 40 mg SDV IVP (21:07)
[2024-10-29 22:42] LABS: SARS Covid-2 Antigen Negative (Negative)
[2024-10-30 03:49] VITALS: BP 132/79; PULSE 68; RESP 17; TEMP 36.3; O2SAT 95
[2024-10-30] MEDS: piperacillin-tazobactam 3.375 GM in sodium chloride 0.9% (plus) 50 ML IV (04:03)
[2024-10-30 05:34] LABS: Basophils % 0.3 %; Eosinophils # 0.2 10^3/uL (0.0-0.8); Eosinophils % 1.3 %; Hematocrit 35.4 % (37-53); Lymphocytes # 1.7 10^3/uL (0.8-4.8); Lymphocytes % 14.6 %; Mean Corpuscular HGB Conc 32.2 g/dL (30-55); Mean Platelet Volume 9.6 fL (7.4-10.4); Monocytes # 1.1 10^3/uL (0.2-0.9); Monocytes % 9.5 %; Neutrophils # 8.73 10^3/uL (1.8-7.7); Neutrophils % 73.5 %; Nucleated Red Blood Cells % 0 %; Platelet Count 333 10^3/cmm (157-399); Red Blood Count 4.07 10^6/uL (3.85-5.65); Red Cell Distribution Width 16.4 % (12.1-15.1); White Blood Count 11.89 10^3/uL (3.29-11.43)
[2024-10-30 06:02] VITALS: PULSE 76
[2024-10-30 06:15] LABS: Alanine Aminotransferase 11 U/L (0-41); Albumin Level 3.1 g/dL (3.5-5.2); Alkaline Phosphatase 70 U/L (40-130); Anion Gap 13.1 (5-19); Aspartate Amino Transferase 12 U/L (0-40); Blood Urea Nitrogen 23 mg/dL (8-23); Calcium 8.8 mg/dL (8.5-10.5); Carbon Dioxide 26 mmol/L (22-29); Chloride 99 mmol/L (98-107); Creatinine Clr Calc Pharmacy 51.3051; Globulin 2.9 g/dL (1.3-4.6); Glucose 96 mg/dL (65-115); Osmolality Calculated 282 mOsm/kg (285-295); Potassium 4.1 mmol/L (3.5-5.1); Sodium 134 mmol/L (136-145); Total Bilirubin 0.3 mg/dL (0.15-1.2)
[2024-10-30 08:00] VITALS: BP 158/80; PULSE 77; RESP 16; TEMP 36; O2SAT 95
[2024-10-30] MEDS: heparin 5,000 unit/mL INJ 1 mL 5000 UNIT SUBCUT (08:09)
[2024-10-30] MEDS: gabapentin 300 mg Capsule PO (08:10)
[2024-10-30] MEDS: lisinopril 20 mg Tablet PO (08:10)
[2024-10-30] MEDS: atorvastatin 40 mg Tablet PO (08:10)
[2024-10-30] MEDS: clopidogrel 75 mg Tablet PO (08:10)
[2024-10-30] MEDS: bacitracin ointment Pkt 1 EACH TOPICAL (08:10)
[2024-10-30] MEDS: tamsulosin 0.4 mg Capsule PO (08:10)
[2024-10-30] MEDS: docusate sodium 100 mg Capsule PO (08:10)
--- NOTE | 2024-10-30 11:14 | PM.PN ---
Subjective Subjective: 83-year-old with past medical history of benign prostatic hyperplasia, coronary artery disease, hypertension, hyperlipidemia, stroke and peripheral vascular disease, was recently found to have a ischemic left lower extremity status post left BKA who was [facility] hospital [facility] after he was found to have decreased level of responsiveness following a fall. There was some concern for possible seizure however no seizure-like activity was noted. Upon arrival to emergency room his initial laboratory workup showed a WBC of 14, hemoglobin of 12, hematocrit of 38 and a platelet count of 456. Sodium 131, potassium 3.7, chloride 94, bicarb 25, BUN 18 and a creatinine of 1.1. Glucose of 156. Blood cultures were drawn. Imaging studies included a CT head which did not show any evidence of acute intracranial abnormality. A chest x-ray also did not show any acute cardiopulmonary abnormality. A CT abdomen pelvis was also performed which showed apparent inflammatory changes just lateral to the expected location of the mid descending colon. Suspected to have possible colitis. Also noted to have mild left posterior lobe consolidation. Patient was started on IV Zosyn 3.375 g IV every 8 hours. Patient hospital course remained stable. His leukocytosis had improved to 11.8. Blood cultures have not shown any growth. Urine cultures that showed Pseudomonas. Previously was noted to have Pseudomonas urinary tract infection so it was not clear if this was a colonization versus acute infection. Patient's mental status had also improved. Did not have any seizure-like activity during hospitalization. Wound care was consulted and his stump was evaluated as patient had sutures placed following surgery 14 days prior. Recommendations from wound care were to maintain sutures at this point. No acute infection of stump was noted. Patient was already scheduled to follow-up with orthopedic surgery. Lab work upon the day of discharge showed a WBC of 11.8, hemoglobin of 11.4, hematocrit of 35 and a platelet count of 333. Sodium 134, potassium 4.1, chloride 99, bicarb 26, BUN 23 and a creatinine of 1.1. Vitals/I&O/Wt Last Vital Signs Temp 96.8 F L 10/30/24 08:00 Pulse 77 10/30/24 08:00 Resp 16 10/30/24 08:00 BP 158/80 10/30/24 08:00 Pulse Ox 95 10/30/24 08:00 O2 Del Method Nasal Cannula 10/30/24 08:00 O2 Flow Rate 2 10/30/24 08:00 10/29/24 10/30/24 10/30/24 22:59 06:59 14:59 Intake Total 690 / 740 50 / 790 530 / 530 Output Total 200 / 400 Balance 490 / 340 50 / 390 530 / 530 Weight last 48 hrs Weight 65 kg Weight 64.546 kg Physical Exam Narrative: General:AO x3, chronically sick appearing HEENT: PERRLA, pupils bilaterally equal and reactive Chest: Bilateral bronchial breath sounds with occasional rhonchi all over lung figueroa, equal good air entry bilaterally CVS: S1-S2 regular, no murmurs, no tachycardia, no gallops, no rubs Abdomen: Soft, nontender, no organomegaly, bowel sounds present Right renal angle tenderness Neuro: No focal deficits, no facial deformity, AO x3, Extremity: Left below-knee amputation Data 10/30/24 05:00 10/30/24 05:00 A&P Assessment and plan (1) Encephalopathy: (2) Sepsis: (3) UTI (urinary tract infection): (4) Hypertension: (5) CAD (coronary artery disease): Plan Right Lower Extremity Amputation - Status post right lower extremity amputation 14 days ago, now post-operative day 14. - Stump appears clean and dry with sutures in place. Differential Diagnosis: 1. Healing surgical site. 2. Possible early superficial infection, though no overt signs noted. Plan: 1. wound care consult 2. Continue IV abx for now 3. D/W surgery - keep sutures in Possible UTi - SIRs on admission 1. Continue IV zosyn for now Debilitated State - Requires assistance with activities of daily living and transfers. Plan: 1. Physical therapy and occupational therapy to work on strengthening, mobility, and self-care. PDMP PDMP Reviewed: Not Reviewed Attestations Medical Necessity Statement*: Anticipate discharge today. Coding Level of Care Code Acute Code for [facility] Fwd Diagnoses Encephalopathy G93.40 Sepsis A41.9 UTI (urinary tract infection) N39.0 Hypertension I10 CAD (coronary artery disease) I25.10
--- NOTE | 2024-10-30 11:33 | PM.DCS ---
Discharge Providers Date of Admission: 10/26/24 18:00 Date of Discharge: October 30, 2024 Attending Provider at Admission: Norman Cerda MD Attending Provider at Discharge: Cony Sharp Primary Care Provider: Milton Madrigal MD Diagnoses at Discharge Discharge Diagnosis (1) Encephalopathy: Status: Resolved (2) Sepsis: Status: Resolved (3) UTI (urinary tract infection): Status: Acute (4) Hypertension: Status: Acute (5) CAD (coronary artery disease): Status: Acute (6) Colitis: Status: Inactive Reason for Visit Reason for Visit: possible seizure Hospital Course Hospital Course 83-year-old with past medical history of benign prostatic hyperplasia, coronary artery disease, hypertension, hyperlipidemia, stroke and peripheral vascular disease, was recently found to have a ischemic left lower extremity status post left BKA who was brought into the hospital from assisted after he was found to have decreased level of responsiveness following a fall. There was some concern for possible seizure however no seizure-like activity was noted. Upon arrival to emergency room his initial laboratory workup showed a WBC of 14, hemoglobin of 12, hematocrit of 38 and a platelet count of 456. Sodium 131, potassium 3.7, chloride 94, bicarb 25, BUN 18 and a creatinine of 1.1. Glucose of 156. Blood cultures were drawn. Imaging studies included a CT head which did not show any evidence of acute intracranial abnormality. A chest x-ray also did not show any acute cardiopulmonary abnormality. A CT abdomen pelvis was also performed which showed apparent inflammatory changes just lateral to the expected location of the mid descending colon. Suspected to have possible colitis. Also noted to have mild left posterior lobe consolidation. Patient was started on IV Zosyn 3.375 g IV every 8 hours. Patient hospital course remained stable. His leukocytosis had improved to 11.8. Blood cultures have not shown any growth. Urine cultures that showed Pseudomonas. Previously was noted to have Pseudomonas urinary tract infection so it was not clear if this was a colonization versus acute infection. Patient's mental status had also improved. Did not have any seizure-like activity during hospitalization. Wound care was consulted and his stump was evaluated as patient had sutures placed following surgery 14 days prior. Recommendations from wound care were to maintain sutures at this point. No acute infection of stump was noted. Patient was already scheduled to follow-up with orthopedic surgery. Lab work upon the day of discharge showed a WBC of 11.8, hemoglobin of 11.4, hematocrit of 35 and a platelet count of 333. Sodium 134, potassium 4.1, chloride 99, bicarb 26, BUN 23 and a creatinine of 1.1. Physical Exam Narrative: General:no acute distress AO x3, chronically sick appearing HEENT: PERRLA, pupils bilaterally equal and reactive Chest: Bilateral bronchial breath sounds with occasional rhonchi all over lung figueroa, equal good air entry bilaterally CVS: S1-S2 regular, no murmurs, no tachycardia, no gallops, no rubs Abdomen: Soft, nontender, no organomegaly, bowel sounds present= Neuro: No focal deficits, no facial deformity, AO x3, Extremity: Left below-knee amputation, no discharge Discharge Data Studies Completed and Pending Completed Studies During Hospitalization Category Date Time Status CT abdomen pelvis w con* [id number] Stat Cat Scan 10/26/24 17:[address] head wo con* [id number] Stat Cat Scan 10/26/24 09:32 Completed XR chest 1V portable [id number] Stat Exams 10/26/24 09:32 Completed CV. echo complete* [id number] Routine Ultrasound 10/27/24 20:46 Completed Pending at discharge Category Date Time Status Blood Culture Stat Lab 10/26/24 11:22 Results OVA and Parasites, Conc and PE Routine Lab 10/27/24 11:09 Received Salmonella / Shigella / Campy Routine Lab 10/27/24 11:09 Received Urinalysis Stat Lab 10/27/24 14:21 Ordered Radiology Impressions Chest X-Ray 10/26/24 09:32 IMPRESSION: Stable chest with no acute abnormality. Head CT 10/26/24 09:32 IMPRESSION: 1. No acute hemorrhage or edema. 2. Large remote RIGHT frontal and RIGHT occipital lobe infarct with encephalomalacia. 3. Advanced cerebral atrophy and small vessel disease. Abdomen/Pelvis CT 10/26/24 17:26 IMPRESSION: 1. Apparent inflammatory change just lateral to the expected location of the mid ascending colon. There may be interposed small bowel in this region. Nonspecific finding. Differential diagnosis includes but is not limited to focal colitis, focal enteritis, and omental infarction. Recommend short interval follow-up as clinically indicated. Repeat CT with oral contrast could also be considered. 2. Mild left posterior lower lobe consolidation. 3. Other nonemergent findings above. COMMENTS: Consistent with the [employer]'s Incidental Findings Committee white paper (J Am Anastasia Radiol 2018): Any incidental renal lesion less than 1 cm or classified as too small to characterize, or any incidental cystic renal lesion characterized as simple-appearing, is likely benign. No follow-up imaging is recommended for these lesions per consensus recommendations based on imaging criteria. Laboratory Results WBC 11.89 10^3/uL (3.29-11.43) H 10/30/24 05:00 RBC 4.07 10^6/uL (3.85-5.65) 10/30/24 05:00 Hgb 11.40 g/dL (11.27-16.99) 10/30/24 05:00 Hct 35.4 % (37-53) L 10/30/24 05:00 MCV 87.0 fl (82-101) 10/30/24 05:00 MCH 28.0 pg (27-33) 10/30/24 05:00 MCHC 32.2 g/dL (30-55) 10/30/24 05:00 RDW 16.4 % (12.1-15.1) H 10/30/24 05:00 Plt Count 333 10^3/cmm (157-399) 10/30/24 05:00 MPV 9.6 fL (7.4-10.4) 10/30/24 05:00 Neut % (Auto) 73.5 % 10/30/24 05:00 Lymph % (Auto) 14.6 % 10/30/24 05:00 [place] % (Auto) 9.5 % 10/30/24 05:00 Eos % (Auto) 1.3 % 10/30/24 05:00 Baso % (Auto) 0.3 % 10/30/24 05:00 Neut # (Auto) 8.73 10^3/uL (1.8-7.7) H 10/30/24 05:00 Lymph # (Auto) 1.7 10^3/uL (0.8-4.8) 10/30/24 05:00 [place] # (Auto) 1.1 10^3/uL (0.2-0.9) H 10/30/24 05:00 Eos # (Auto) 0.2 10^3/uL (0.0-0.8) 10/30/24 05:00 Baso # (Auto) 0.0 10^3/uL (0.0-0.1) 10/30/24 05:00 Nucleated RBC % (auto) 0 % 10/30/24 05:00 Nucleated RBCs # 0.0 /100WBC 10/30/24 05:00 Specimen Type Arterial 10/26/24 09:33 Sample Site Radial, right 10/26/24 09:33 ABG pH 7.45 (7.35-7.45) 10/26/24 09:33 ABG pCO2 37.2 mmHg (35-45) 10/26/24 09:33 ABG pO2 61.9 mmHg (80.0-100.0) L 10/26/24 09:33 ABG HCO3 25.9 mmol/L (22-26) 10/26/24 09:33 ABG O2 Saturation 92.1 10/26/24 09:33 ABG Base Excess 1.9 mmol/L (-2.0-2.0) 10/26/24 09:33 Romero Test Pos 10/26/24 09:33 A-a O2 Gradient 5.2 mmHg (5-10) 10/26/24 09:33 Hematocrit 36.1 % (42-52) L 10/26/24 09:33 Hgb O2 Saturation 89.9 % (95-100) L 10/26/24 09:33 Carboxyhemoglobin 1.1 %THgb (0.4-20.1) 10/26/24 09:33 Methemoglobin 1.3 % (0.4-1.5) 10/26/24 09:33 Total Hemoglobin 11.8 g/dL (14-18) L 10/26/24 09:33 Sodium 131.0 mmol/L (131-143) 10/26/24 09:33 Potassium 3.3 mmol/L (3.5-5.0) L 10/26/24 09:33 Glucose 117.0 mg/dL (70-115) H 10/26/24 09:33 Ionized Calcium 1.2 mmol/L (1.1-1.4) 10/26/24 09:33 O2 Delivery Device Nc 10/26/24 09:33 O2 Liters/Min 3.0 % 10/26/24 09:33 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 ID [place] 10/26/24 09:33 Sodium 134 mmol/L (136-145) L 10/30/24 05:00 Potassium 4.1 mmol/L (3.5-5.1) 10/30/24 05:00 Chloride 99 mmol/L (98-107) 10/30/24 05:00 Carbon Dioxide 26 mmol/L (22-29) 10/30/24 05:00 Anion Gap 13.1 (5-19) 10/30/24 05:00 BUN 23 mg/dL (8-23) 10/30/24 05:00 Creatinine 1.1 mg/dL (0.7-1.2) 10/30/24 05:00 GFR Calculation Not Reportable 10/30/24 05:00 Glucose 96 mg/dL (65-115) 10/30/24 05:00 POC Glucose 100 mg/dL (70-110) 10/27/24 12:08 Estimat Average Glucose 114 10/26/24 11:15 Hemoglobin A1c 5.6 % (4.0-6.0) 10/26/24 11:15 Calculated Osmolality 282 mOsm/kg (285-295) L 10/30/24 05:00 Lactic Acid 2.0 mmol/L (0.5-2.2) 10/26/24 11:15 Calcium 8.8 mg/dL (8.5-10.5) 10/30/24 05:00 Phosphorus 3.3 mg/dL (2.5-4.5) 10/29/24 02:40 Magnesium 2.0 mg/dL (1.7-2.3) 10/29/24 02:40 Iron 46 ug/dL (59-158) L 10/26/24 11:15 TIBC 299 mcg/dl 10/26/24 11:15 % Saturation 15.3 % (20-50) L 10/26/24 11:15 Unsat Iron Binding 253 ug/dL (112-347) 10/26/24 11:15 Total Bilirubin 0.3 mg/dL (0.15-1.2) 10/30/24 05:00 AST 12 U/L (0-40) 10/30/24 05:00 ALT 11 U/L (0-41) 10/30/24 05:00 Alkaline Phosphatase 70 U/L (40-130) 10/30/24 05:00 Ammonia 16 umol/L (16-60) 10/26/24 11:15 Creatine Kinase 47 U/L (39-308) 10/26/24 11:15 Troponin T Baseline 23 ng/L (0-15) H 10/26/24 11:15 Troponin T 120 Minute 18.45 ng/L (0-15) H 10/26/24 13:21 Delta Troponin T -4.55 ABS# (0-10) L 10/26/24 13:21 Troponin T Hi Sens 6Hr 20.29 ng/L (0-15) H 10/26/24 18:01 Troponin T Hi Sens 6Hr Delta -2.71 ng/L (0-12) L 10/26/24 18:01 Total Protein 6.0 g/dL (6.6-8.7) L 10/30/24 05:00 Albumin 3.1 g/dL (3.5-5.2) L 10/30/24 05:00 Globulin 2.9 g/dL (1.3-4.6) 10/30/24 05:00 Triglycerides 69 mg/dL (0-150) 10/27/24 02:35 Cholesterol 119 mg/dL (0-200) 10/27/24 02:35 LDL Cholesterol, Calc 63 mg/dL (50-129) 10/27/24 02:35 HDL Cholesterol 42 mg/dL (60-100) L 10/27/24 02:35 LDL/HDL Ratio 1.50 RATIO (0.00-3.22) 10/27/24 02:35 Cholesterol/HDL Ratio 2.83 mg/dL (1.0-5.00) 10/27/24 02:35 Vitamin B12 713 pg/mL (232-1245) 10/26/24 11:15 Folate 14.2 ng/mL (4.5-32.2) 10/27/24 02:35 Procalcitonin 0.24 ng/mL (0-0.5) 10/27/24 02:35 TSH 1.49 uIU/mL (0.27-4.20) 10/26/24 11:15 Urine Color Red (Yellow) A 10/26/24 13:57 Urine Appearance Turbid (CLEAR) A 10/26/24 13:57 Urine pH 6.5 (5-7) 10/26/24 13:57 Ur Specific [place] 1.014 (1.005-1.030) 10/26/24 13:57 Urine Protein 2+ (Negative) A 10/26/24 13:57 Urine Glucose (UA) Negative (Normal) 10/26/24 13:57 Urine Ketones Negative (Negative) 10/26/24 13:57 Urine Blood 3+ (Negative) A 10/26/24 13:57 Urine Nitrate Positive (Negative) A 10/26/24 13:57 Urine Bilirubin Negative (Negative) 10/26/24 13:57 Urine Urobilinogen 1.0 mg/dL (Negative) 10/26/24 13:57 Ur Leukocyte Esterase 3+ (Negative) A 10/26/24 13:57 Urine RBC >100 /hpf (0-2) H 10/26/24 13:57 Urine WBC >100 /hpf (0-5) H 10/26/24 13:57 Ur Squamous Epith Cells 0-5 /hpf (0-5) 10/26/24 13:57 Amorphous Sediment Not Reportable 10/26/24 13:57 Urine Bacteria 4+ /hpf (NONE) H 10/26/24 13:57 Hyaline Casts 4.84 /lpf 10/26/24 13:57 Nasal MRSA (PCR) Not detected (Negative) 10/26/24 21:47 C. difficile (PCR) Negative (Negative) 10/27/24 11:09 Influenza A (PCR) Negative (Negative) 10/26/24 12:04 Influenza Type B (PCR) Negative (Negative) 10/26/24 12:04 RSV (PCR) Negative (Negative) 10/26/24 12:04 SARS-CoV-2 (PCR) Negative (Negative) 10/26/24 12:04 SARS-CoV-2 Ag (Rapid) Negative (Negative) 10/29/24 21:18 Vitals Last Vital Signs Temp 96.8 F L 10/30/24 08:00 Pulse 77 10/30/24 08:00 Resp 16 10/30/24 08:00 BP 158/80 10/30/24 08:00 Pulse Ox 95 10/30/24 08:00 O2 Del Method Nasal Cannula 10/30/24 08:00 O2 Flow Rate 2 10/30/24 08:00 Discharge Plan Discharge Patient Disposition: Xfer SNF Condition: Stable Prescriptions: New rosuvastatin [Crestor] 10 mg tablet 10 mg PO DAILY Qty: 10 0RF Continued PreserVision AREDS 7,160-113-100 hldv-dr-pnlh tablet 2 tab PO DAILY Rx Instructions: administer with AM and PM meals cholecalciferol (vitamin D3) 75 mcg (3,000 unit) tablet 75 mcg PO DAILY (DME) electric scooter See Rx Instructions .Route .MEDSUPPLY Qty: 1 0RF Rx Instructions: As directed temazepam 30 mg capsule 30 mg PO .QHS 90 Days Qty: 90 1RF hydrocortisone 2.5 % cream 1 applic topical BID Qty: 30 1RF Rx Instructions: to face no more than 2 wks/mo prn for flares hydrocodone-acetaminophen 5-325 mg tablet 1 tab PO Q8H PRN (Reason: pain) 28 Days Qty: 60 0RF gabapentin 300 mg capsule 300 mg PO DAILY Qty: 90 5RF clopidogrel 75 mg tablet 75 mg PO DAILY Qty: 90 3RF lisinopril 20 mg tablet 20 mg PO BID Rx Instructions: TAKE 1 TABLET BY MOUTH TWICE DAILY tamsulosin 0.4 mg capsule 0.4 mg PO DAILY Discontinued hydralazine 10 mg tablet See Rx Instructions .ROUTE .COMPLEX Qty: 540 3RF Dose Instruction: TAKE 2 TABLETS BY MOUTH THREE TIMES DAILY Rx Instructions: TAKE 2 TABLETS BY MOUTH THREE TIMES DAILY Discharge Orders: Discharge Order (Routine); Ordered 10/30/24 Ordered By: Cony Sharp Referrals: Milton Madrigal MD [Primary Care Provider] - 4-7 days Discharge Diet: Usual diet Discharge Activity: Increase activity as tolerated Patient Instructions: Levofloxacin (By mouth) (Levaquin, Levaquin Leva-blair), Rosuvastatin (By mouth), Urinary Tract Infection in Men (GEN), Opioid Safety Discharge Attestations Time Spent in Discharge Care*: greater than 30 min Specific Discharge Activities: educating patient, discussing with shelter case manager/social workers/dc planners, documenting/other paperwork and evaluating patient/reviewing data Status at Discharge: Cognitive status at discharge: cognitively intact, Behavioral status at discharge: cooperative, Functional status at discharge: other assisted ambulation, Quality Metrics Clinical Quality Measures [ No reported AMI, CVA or VTE this stay] Coding Level of Care Code Acute Code for Chg Fwd Diagnoses Encephalopathy G93.40 Sepsis A41.9 UTI (urinary tract infection) N39.0 Hypertension I10 CAD (coronary artery disease) I25.10 Colitis K52.9
[2024-10-30 11:39] VITALS: BP 138/73; PULSE 80; RESP 16; TEMP 37.3; O2SAT 93
--- NOTE | 2024-10-30 12:46 | PC.NURSE ---
This nurse called report to Kofi at [facility] at 1240. Their facility will be heading our way shortly to pickle solution maker pt.
[2024-10-30 13:33] VITALS: BP 138/73; PULSE 80; O2SAT 93
== END 2024-10-30 13:34 | disposition skilled nursing facility (03) | DRG 871 ==
LOC: ER 15:56 → ER IP 18:00 → MEDSURG 18:48
PROVIDERS: Admitting Provider Student in an Organized Health Care Education/Training Program; Emergency Provider Family Medicine; PCP Family Medicine; Visit Provider Hospitalist
DX: A41.9 Sepsis, unspecified organism (principal); G93.41 Metabolic encephalopathy; N39.0 Urinary tract infection, site not specified; R65.20 Severe sepsis without septic shock; I10 Essential (primary) hypertension; I25.10 Atherosclerotic heart disease of native coronary artery without angina pectoris; K52.9 Noninfective gastroenteritis and colitis, unspecified; N40.0 Benign prostatic hyperplasia without lower urinary tract symptoms; E78.5 Hyperlipidemia, unspecified; I73.9 Peripheral vascular disease, unspecified; Z86.73 Personal history of transient ischemic attack (TIA), and cerebral infarction without residual deficits; Z89.512 Acquired absence of left leg below knee; Z87.440 Personal history of urinary (tract) infections; Z79.02 Long term (current) use of antithrombotics/antiplatelets
CPT/HCPCS: 36415; 36416; 36600; 70450; 71045; 74177; 80051; 80053; 80061; 81001; 82140; 82274; 82330; 82550; 82607; 82746; 82805; 82962; 83036; 83540; 83550; 83605; 83630; 83735; 84100; 84145; 84443; 84484; 85025; 86403; 87040; 87045; 87077; 87086; 87177; 87186; 87209; 87426; 87427; 87449; 87493; 87637; 93005; 93306; 94664; 96365; 96372; 99285; J1644; J2470; J2543; J7030; J9999

== ENCOUNTER → 2024-11-22 15:33 | Outpatient (BNVA) | payer MEDICARE, OTHER, SELFPAY | PROVIDERS: PCP Family Medicine; Visit Provider Dermatology | DX: D03.39 Melanoma in situ of other parts of face (principal); L98.8 Other specified disorders of the skin and subcutaneous tissue; L82.1 Other seborrheic keratosis; Z08 Encounter for follow-up examination after completed treatment for malignant neoplasm; Z85.828 Personal history of other malignant neoplasm of skin; C44.319 Basal cell carcinoma of skin of other parts of face; L57.0 Actinic keratosis | CPT/HCPCS: 17000; 17280; 99214 ==

== ENCOUNTER 2024-12-18 13:40 | Oncology outpatient (recurring) (ONCR) | payer MEDICARE, OTHER, SELFPAY ==
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
--- NOTE | 2024-11-30 09:30 | PETR_ITS ---
PROCEDURE INFORMATION: Exam: PET/CT Skull Base to Mid-thigh Exam date and time: 11/30/2024 10:29 AM Age: 84 years old Clinical indication: Condition or disease; Primary cancer: Lung cancer; Prior surgery; Surgery date: 6+ months; Surgery type: Lumbar laminectomy; Additional info: Small cell lung cancer, right upper lobw LABS AND CLINICAL REPORTS: Glucose: 99 mg/dl Treatment strategy for malignancy (PET staging): Initial Staging (PI) TECHNIQUE: Imaging protocol: Following at least four-hour fasting and following the injection of radiopharmaceutical, low dose CT images were obtained. Then, PET images were obtained. Attenuation corrected images were constructed using the CT scan. Fused images of PET and CT were reviewed. The standardized uptake values (SUV) reported below are maximum values within a region of interest, expressed in gm/ml. Exam includes orbital meatal line to mid-thigh. SUV normalization method: BodyWeight Radiopharmaceutical: 10.98 mCi F-18 FDG (Fluorodeoxyglucose), IV. Time of imaging post radiopharmaceutical administration: 50 minutes Injection site: right ac COMPARISON: 1. CT kidney stone [id number] 01/20/2018 3:[address] abdomen pelvis w con* [id number] 10/26/2024 5:40 PM FINDINGS: Brain: Visualized brain has normal physiologic uptake. Pharynx: No abnormal uptake. Larynx: No abnormal uptake. Lungs, pleura and trachea: FDG avid spiculated right upper lobe nodule measures 1.7 cm on axial image 62 and shows SUV max 12.9. Radiating non FDG avid bands. Mild platelike atelectasis versus scarring at the lower lobes. Left lower lobe calcified granulomata. Heart: Normal physiologic uptake. Coronary arteries: Heavy coronary artery calcification. Mediastinal space: No abnormal uptake. Liver: No abnormal uptake. Gallbladder and biliary ducts: No abnormal uptake. Pancreas: No abnormal uptake. Spleen: No abnormal uptake. Adrenal glands: FDG-avid right adrenal nodule measures approximately 1.8 x 1.1 cm on axial image 134, stable size and CT appearance from January 2018, SUV max 14.4. This nodule shows internal attenuation less than 10 Hounsfield units. Unremarkable left adrenal gland. Kidneys and ureters: Normal physiologic uptake. Bilateral renal cysts, to include hyperdense 1 cm cyst on the right. Stomach and bowel: Relative thickening with FDG uptake along the underdistended proximal stomach. No abnormal bowel uptake. Colonic diverticulosis without findings of diverticulitis. Vasculature: No abnormal uptake. Heavy systemic atherosclerotic calcification without aortic aneurysm. Partially visualized arterial bypass graft from the left femoral artery extending distally beyond the field of view. Lymph nodes: No enlarged lymphadenopathy. Low-level FDG uptake at nonenlarged calcified mediastinal nodes likely on the basis of old granulomatous disease. Skeleton: FDG avid mixed sclerotic and lytic lesion of the anterior left iliac bone measures 3 cm on axial image 198 and shows SUV max 14.8 at predominantly lytic portion on this image. Stable chronic non FDG avid compression deformities along multiple lower thoracic and lumbar spine vertebral bodies. Degenerative changes along the spine. Non FDG avid posttraumatic/postsurgical changes to the wqpte-fjblvha-gdgw-left face to include the right globe and orbit. Mild periarticular FDG uptake at the shoulders and hips is likely inflammatory. Soft tissues: No suspicious abnormal uptake in the visualized head, neck, chest, abdomen, pelvis, and extremities. FDG uptake at bilateral lower neck and intercostal musculature without underlying CT abnormality is likely physiologic activation. Partially visualized low-level FDG uptake at distal bilateral thigh musculature without underlying CT abnormality is likely physiologic activation or strain. METRICS: Mediastinal blood pool: SUV mean 1.5 Liver uptake: SUV mean 1.8 PET/PET skull to thigh INIT [id number] IMPRESSION: 1. FDG avid spiculated 1.7 cm right upper lobe nodule in keeping with reported malignancy. 2. FDG avid expansile 3 cm heterogeneous lytic and sclerotic anterior left iliac lesion suspicious for metastasis. 3. Low-level FDG uptake at nonenlarged calcified mediastinal lymph nodes likely on the basis of old granulomatous disease, less likely metastatic. 4. Although FDG avid, right adrenal nodule shows hypodense attenuation and stable CT appearance dating back to January 2018 most likely representing benign adenoma. 5. FDG avid thickening along the proximal stomach may be physiologic in the setting of underdistention or inflammatory. 6. Additional chronic and incidental findings as above.
--- NOTE | 2024-12-06 13:51 | ONCRAD EPV_ITS ---
Radiation Oncology Established Patient Visit Patient: Dayanna Donohue [id number] : 1940> Age: 84> Sex: Male> Dictated by: Tommy Mejia Date of Service: 12/06/2024 Referring Physician(s) : DR ZURITA DIAGNOSIS: C34.91 - Malignant neoplasm of unspecified part of right bronchus or lung, Diagnosed 11/21/2024 (Active) RUL 1.84CM NSCLC LESION, PET/CT notes also A 3CM EXPANSILE left iliac lesion, LIVES IN [facility]. STAGE: IV-T1NOM1 ICD-10: C79.51, C34.11 Radiotherapy to Date: NONE Current History: This is a pleasant 84-year-old SNF male who is here to discuss new PET/CT results. He recently underwent biopsy of the RUL 1.84 cm mass which returned NSCLC. PET/CT was performed on 11/30/2024 that showed avid spiculated 1.7 cm RUL nodule. He also had a LEFT HIP expansile 3 cm lytic/sclerotic of the anterior left iliac lesion suspicious for metastatic disease. He and his son are here to discuss the results. After all questions answered, the patient did not feel that he wanted to go undergo any treatment, nor undergo biopsy of the bony lesion since he is not electing any treatment. Current Medications: bisacodyl (Dulcolax (bisacodyl)) 10 mg IA DAILY PRN cholecalciferol (vitamin D3) 75 mcg PO DAILY clopidogrel 75 mg PO DAILY [electric scooter As directed] gabapentin 300 mg PO DAILY hydrocodone-acetaminophen 5-325 mg 1 tab PO Q8H PRN 4 weeks hydrocortisone 2.5% 1 applic topical BID lisinopril 20 mg PO BID magnesium hydroxide (Milk of Magnesia) 30 mL PO DAILY PRN rosuvastatin (Crestor) 10 mg PO DAILY sodium phosphates 19-7 gram/118 mL (Fleet Enema) 118 mL IA DAILY PRN sulfamethoxazole-trimethoprim 800-160 mg (Bactrim DS) 1 tab PO DAILY tamsulosin 0.4 mg PO DAILY temazepam 30 mg PO .QHS 3 months vitamins A,C,P-jxcv-isvnvi 2,148 mcg-113 mg-45 mg-17.4mg (PreserVision AREDS) 2 tabs PO DAILY Allergies: Opioids - Morphine Analogues Allergy, sees scary things atorvastatin (From Lipitor) Adverse Reaction (Severe myalgias) Current Complaints / Review of Systems: . Vital Signs: Performed on 12/06/2024 1:11 PM Height - 72 in, Temperature - 97.7 f, Pulse - 94 /min, Respiration - 18 /min, O2 Sat - 97 %, Pain - 0, Fatigue - 0 and BP - 119/ 62 mm(hg)(/low). Physical Exam: General: Alert and oriented x 3. No acute distress. HEENT: Normocephalic, atraumatic. Extraocular Movements Intact: Pupils Equal, Round, Reactive to Light and Accommodation: Sclerae anicteric. Oral cavity is clear without lesions, masses or ulcers. NECK: Supple without supraclavicular or jugular lymphadenopathy. LUNGS: Clear to auscultation bilaterally without rales, rhonchi or wheeze. HEART: Regular rate and rhythm, normal S1 and S2 without murmur, gallop or rub. MUSCULOSKELETAL: No tenderness or percussion pain over the axial skeleton, scapulae or pelvis. ABDOMEN: Soft, nontender, nondistended without masses or organomegaly. Bowell sounds are present. EXTREMITIES: No peripheral edema is identified. AKA LLE NEUROLOGIC: Cranial nerves II ???XII are grossly intact. Normal sensation, strength 5/5 in all extremities, normal gait, no ataxia. Performance Status: KPS 70 Lab: None pending. Pathology: Primary, c34.91 - malignant neoplasm of unspecified part of right bronchus or lung, Diagnosed 11/21/2024 (active) . Imaging: As above Impression: RUL 1.84CM NSCLC LESION, PET/CT notes also A 3CM EXPANSILE left iliac lesion, LIVES IN SNF. PLAN: Discussion of options were had with the patient and son. Questions were answered to their satisfaction Patient has elected at this time to not undergo further treatment. We will see him in the future if specifically requested. Signed by: 12/06/2024 1:50:23 PM <<Signature on File>> Time spent with patient: 30 minutes CPT Code: * CPT Code: *
== END 2024-12-19 23:59 | disposition home or self-care (01) ==
PROVIDERS: PCP Family Medicine; Visit Provider Radiology Radiation Oncology
DX: Z51.0 Encounter for antineoplastic radiation therapy (principal); C34.11 Malignant neoplasm of upper lobe, right bronchus or lung
CPT/HCPCS: 77300; 77301; 77334; 77338; 77373; 77470; 78815; 99024; 99205; 99214; A9552

== ENCOUNTER 2024-12-21 10:37 | Oncology outpatient (recurring) (ONCR) | payer MEDICARE, OTHER, SELFPAY ==
--- NOTE | 2024-12-21 11:43 | N.ONRD TS_ITS ---
Radiation Oncology Treatment Summary Patient: Dayanna>Charanjit> MR#: [id number] : 1940> Age: 84> Sex: Male Dictated by: Tommy Mejia Date of Service: 12/21/2024 Referring Physician(s) : Diagnosis: C34.91 - Malignant neoplasm of unspecified part of right bronchus or lung, Diagnosed 11/21/2024 (Active) Radiotherapy to Date: Course: RUL, Treatment Site: RUL SBRT, Ref. ID: [id number], Energy: 6X, Dose/Fx (cGy): 1,200, #Fx: 4 / 4, Dose Correction (cGy): 0, Total Dose Delivered (cGy): 4,800, Start Date: 12/17/2024, End Date: 12/21/2024, Elapsed Days: 4 Performed on 12/21/2024 10:46 AM BMI - 18.201 kg/m2 (low), Height - 72 in, Weight - 134.2 lbs, Temperature - 96.2 f, Pulse - 78 /min, Respiration - 18 /min, O2 Sat - 93 % (low), Pain - 0, Fatigue - 0 and BP - 119/ 60 mm(hg)(/low). DIAGNOSIS: C34.91 - Malignant neoplasm of unspecified part of right bronchus or lung, Diagnosed 11/21/2024 (Active) RUL 1.84CM NSCLC LESION, PET/CT notes also A 3CM EXPANSILE left iliac lesion, LIVES IN [facility]. STAGE: IV-T1NOM1 ICD-10: C79.51, C34.11 Radiotherapy to Date: NONE Current History: This is a pleasant 84-year-old SNF male who is here to discuss new PET/CT results. He recently underwent biopsy of the RUL 1.84 cm mass which returned NSCLC. PET/CT was performed on 11/30/2024 that showed avid spiculated 1.7 cm RUL nodule. He also had a LEFT HIP expansile 3 cm lytic/sclerotic of the anterior left iliac lesion suspicious for metastatic disease. He and his son are here to discuss the results. After all questions answered, the patient did not feel that he wanted to go undergo any treatment, nor undergo biopsy of the bony lesion since he is not electing any treatment. Clinical Summary: The patient tolerated RT well. He is now asking to undergo biopsy in the left hip lesion and consider treatment in the future. Plan: End of treatment today. Continue on the above medication until the skin reaction resolves. Follow up in one month. Schedule CT-guided biopsy left hip expansile lesion. Signed by: Tommy Mejia>12/21/2024 11:41:02 AM <<Signature on File>>
== END 2025-01-19 23:59 | disposition home or self-care (01) ==
PROVIDERS: PCP Family Medicine; Visit Provider Radiology Radiation Oncology
DX: Z51.0 Encounter for antineoplastic radiation therapy (principal); C34.11 Malignant neoplasm of upper lobe, right bronchus or lung; M89.9 Disorder of bone, unspecified
CPT/HCPCS: 77336; 77373; 99024

== ENCOUNTER → 2025-01-28 11:28 | Outpatient (BNVA) | payer MEDICARE, OTHER, SELFPAY | PROVIDERS: PCP Family Medicine; Visit Provider Family Medicine | DX: M17.11 Unilateral primary osteoarthritis, right knee (principal); R31.9 Hematuria, unspecified; S88.112A Complete traumatic amputation at level between knee and ankle, left lower leg, initial encounter; X58.XXXA Exposure to other specified factors, initial encounter; I10 Essential (primary) hypertension; T81.49XA Infection following a procedure, other surgical site, initial encounter | CPT/HCPCS: 80053; 81000; 85025 ==

== ENCOUNTER → 2025-01-30 12:57 | Outpatient (BNVA) | payer MEDICARE, OTHER, SELFPAY | PROVIDERS: PCP Family Medicine; Visit Provider Thoracic Surgery (Cardiothoracic Vascular Surgery) | DX: I96 Gangrene, not elsewhere classified (principal); T87.81 Dehiscence of amputation stump; Y83.8 Other surgical procedures as the cause of abnormal reaction of the patient, or of later complication, without mention of misadventure at the time of the procedure | CPT/HCPCS: 11042; 87070; 87075; 87205; 99203; A6212 ==

== ENCOUNTER → 2025-02-06 13:49 | Outpatient (BNVA) | payer MEDICARE, OTHER, SELFPAY | PROVIDERS: PCP Family Medicine; Visit Provider Thoracic Surgery (Cardiothoracic Vascular Surgery) | DX: I96 Gangrene, not elsewhere classified (principal); T87.81 Dehiscence of amputation stump; Y83.8 Other surgical procedures as the cause of abnormal reaction of the patient, or of later complication, without mention of misadventure at the time of the procedure; Z89.612 Acquired absence of left leg above knee | CPT/HCPCS: 11042 ==

== ENCOUNTER 2025-02-18 22:57 | Emergency (ER) | payer MEDICARE, OTHER, SELFPAY ==
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
[2025-02-18 23:03] VITALS: BP 122/99; PULSE 70; RESP 16; TEMP 36.4; O2SAT 95
--- OUTSIDE RECORDS SUMMARY | 2025-02-18 23:10 | XMS_ITS | Clinical Summary ---
Author Organization [facility] de Address [address] [place] [address] Phone Care Team Providers Care Red Cap Name Role Phone Milton Madrigal MD Primary Care Provider Allergies Active Allergy Reactions Criticality Noted Date Comments Morphine Hallucination Low 07/31/2012 Medications lisinopril (PRINIVIL) 10 mg Oral tablet Take 10 mg by mouth daily. Active omega-3 fatty acids-fish oil 300-1,000 mg Oral Cap Take by mouth daily. Active multivitamin (DAILY-FROILAN) Oral tablet Take 1 Tablet by mouth daily Preservision m-vit. Active fluorouracil (FLUOROURACIL) 5 % Cream Apply to affected area see administration instructions. Apply once daily for 2 weeks 40 Gram 0 4 Active sodium, potassium and magnesium sulfates (SUPREP BOWEL PREP KIT) 17.5-3.13-1.6 gram Recon Soln Take 177 mL by mouth see administration instructions. 354 mL 0 5 Active HYDROcodone-ac etaminophen (NORCO) 5-325 mg tablet 5 Active LORazepam (ATIVAN) 0.5 mg tablet every 8 hours as needed . 5 Active CRESTOR 10 mg tablet daily . 5 Active tretinoin (RETIN-A) 0.1 % Cream Apply 1 Applicatorful to affected area 2 times daily. Active tamsulosin (FLOMAX) 0.4 mg capsule Take 1 Capsule (0.4 mg) by mouth daily after supper. 30 Capsule 0 5 Active ferrous sulfate (FEOSOL) 325 mg (65 mg iron) tablet Take 1 Tablet (325 mg) by mouth 2 times daily. 60 Tablet 0 5 Active polyethylene glycol 3350 (MIRALAX) 17 gram/dose Powder Take 1 SCOOP (17 Gram) by mouth daily Dissolve in 8 ounces of fluid and drink entire liquid. 527 Gram 0 5 Active Active Problems Problem Noted Date Diagnosed Date Syncope 06/18/2015 Tobacco abuse 06/18/2015 Overview (06/18/2015): 1 pack per day H/O enucleation of right eyeball 06/18/2015 PAD (peripheral artery disease) 06/18/2015 Status post femoral-popliteal bypass surgery Overview (06/18/2015): Left Leukocytosis 06/18/2015 Benign hypertension 06/18/2015 H/O: CVA (cerebrovascular accident) 06/18/2015 History of nonmelanoma skin cancer 04/11/2014 Hematochezia Acute lower gastrointestinal hemorrhage Anemia Immunizations Immunization Administration Dates Next Due Influenza Seasonal Unspecified Formulation IM Family History Medical History Relation Name Comments Cancer Brother 1 kidney Cancer Brother 2 kidney Kidney Disease Brother 2 Colon Cancer Father rectal Relation Name Status Comments Brother 1 Brother 2 Father Mother Social History Tobacco Use Types Packs/Day Years Used Date Smoking Tobacco: Every Day Cigarettes Smokeless Tobacco: Never Alcohol Use Standard Drinks/Week Comments Yes 0 (1 standard drink = 0.6 oz pur e alcohol) Rarely Sex and Gender Information Value Date Recorded Sex Assigned at Not on file 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 Gender Identity Not on file Sexual Orientation Not on file Last Filed Vital Signs Vital Sign Reading Time Taken Comments Blood Pressure 118/63 06/21/2015 9:50 AM CDT Pulse 73 06/21/2015 6:11 AM CDT Temperature 37.1 C (98.7 F) 06/21/2015 9:50 AM CDT Respiratory Rate 17 06/21/2015 9:50 AM CDT Oxygen Saturation 96% 06/21/2015 9:50 AM CDT Inhaled Oxygen Concentration - - Weight 87.5 kg (193 lb) 06/21/2015 6:11 AM CDT Height 182.9 cm (6') 06/21/2015 6:11 AM CDT Body Mass Index 26.18 06/21/2015 6:11 AM CDT Plan of Treatment Health Maintenance Due Date Last Done Comments DTAP/TDAP/TD VACCINES (1 - Tdap) 11/17/1959 PNEUMOCOCCAL VACCINE 50+ YEA RS (1 of 2 - PCV) 11/17/1958 ZOSTER VACCINE (1 of 2) 11/17/1989 RSV VACCINE (60+ or ) (1 - 1-dose 75+ series) 11/17/2014 COLORECTAL SCREENING 06/19/2018 06/19/2015, 06/17/2015, 06/17/2015, Additional history exists INFLUENZA VACCINE (#1) 2024 05/30/2015 Procedures Procedure Name Priority Date/Time Associated Diagnosis Comments ENDOSCOPY, COLON, SCREENING Routine 06/17/2015 10:43 AM CDT History of colon polyps from Last 3 Months or Most Recently Relevant to Health Maintenance Insurance MEDICARE PART A AND B [facility] Advance Directives For more information, please contact: [phone] * Full Code (Latest Code Status on File) Date Activated Date Inactivated Comments 06/18/2015 6:36 PM 06/21/2015 3:06 PM * Full Code Date Activated Date Inactivated Comments 06/17/2015 10:43 AM 06/17/2015 3:00 PM * Full Code Date Activated Date Inactivated Comments 08/03/2012 10:34 AM 08/03/2012 2:03 PM Care Teams Red Cap Relationship Specialty Start Date End Date Milton Madrigal MD [address] [place] [address] PCP - General Family Practice 07/28/12
--- OUTSIDE RECORDS SUMMARY | 2025-02-18 23:10 | XMS_ITS | Clinical Summary ---
Author Organization [facility] Address [address] [facility] Attn: Epic Prelude ADT JOSEPH ARELLANO [address] Care Team Providers Care Stubber Name Role Phone Milton Madrigal MD Primary Care Provider Allergies Active Allergy Reactions Criticality Noted Date Comments Morphine Hallucination Low 07/31/2012 Medications ferrous sulfate 325 mg (65 mg iron) tablet Take 1 Tablet (325 mg) by mouth 2 times daily. 60 Tablet 0 5 Active rosuvastatin (Crestor) 10 mg tablet daily . 5 Active LORazepam (ATIVAN) 0.5 mg tablet every 8 hours as needed . 5 Active sodium, potassium and magnesium sulfates (SUPREP) 17.5-3.13-1.6 gram Recon Soln Take 177 mL by mouth see administration instructions. 354 mL 0 5 Active tretinoin (RETIN-A) 0.1 % Cream Apply 1 Applicatorful to affected area 2 times daily. 5 Active tamsulosin (FLOMAX) 0.4 mg capsule Take 1 Capsule (0.4 mg) by mouth daily after supper. 30 Capsule 0 5 Active polyethylene glycol 3350 (MIRALAX) 17 gram/dose Powder Take 1 SCOOP (17 Gram) by mouth daily Dissolve in 8 ounces of fluid and drink entire liquid. 527 Gram 0 5 Active HYDROcodone-ac etaminophen (NORCO) 5-325 mg tablet 5 Active Active Problems Problem Noted Date Diagnosed Date Tobacco abuse 06/18/2015 Overview (12/18/2020): 1 pack per day PAD (peripheral artery disease) 06/18/2015 Benign hypertension 06/18/2015 Syncope 06/18/2015 H/O enucleation of right eyeball 06/18/2015 Status post femoral-popliteal bypass surgery Overview (12/18/2020): Left Leukocytosis 06/18/2015 H/O: CVA (cerebrovascular accident) 06/18/2015 History of nonmelanoma skin cancer 04/11/2014 Acute lower gastrointestinal hemorrhage Hematochezia Anemia Immunizations Immunization Administration Dates Next Due [...] drink = 0.6 oz pur e alcohol) Sex and Gender Information Value Date Recorded Sex Assigned at Not on file 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 Gender Identity Not on file Sexual Orientation Not on file Last Filed Vital Signs Vital Sign Reading Time Taken Comments Blood Pressure 118/63 06/21/2015 9:50 AM CDT Pulse 73 06/21/2015 6:11 AM CDT Temperature 37.1 C (98.7 F) 06/21/2015 9:50 AM CDT Respiratory Rate 17 06/21/2015 9:50 AM CDT Oxygen Saturation - - Inhaled Oxygen Concentration - - Weight 87.5 [...] series) 11/17/2014 COLORECTAL SCREENING 06/19/2018 06/19/2015, 06/17/2015, 08/03/2012 INFLUENZA VACCINE (#1) 2024 05/30/2015 Care Teams Stubber Relationship Specialty Start Date End Date Milton Madrigal MD [address] [place] [address] PCP - General Family Practice 07/28/12
== END 2025-02-18 23:11 | disposition home or self-care (01) ==
LOC: ER 23:09
PROVIDERS: Emergency Provider Emergency Medicine; PCP Family Medicine
DX: T82.898A Other specified complication of vascular prosthetic devices, implants and grafts, initial encounter (principal); X58.XXXA Exposure to other specified factors, initial encounter; Z79.02 Long term (current) use of antithrombotics/antiplatelets; I25.10 Atherosclerotic heart disease of native coronary artery without angina pectoris; I10 Essential (primary) hypertension; E78.5 Hyperlipidemia, unspecified; Z86.73 Personal history of transient ischemic attack (TIA), and cerebral infarction without residual deficits
CPT/HCPCS: 99281

== ENCOUNTER 2025-02-23 07:07 | Emergency (ER) | payer MEDICARE, OTHER, SELFPAY ==
[2025-02-23 07:08] VITALS: BP 142/74; PULSE 64; RESP 16; TEMP 36.6; O2SAT 93; BMI 23.0
--- OUTSIDE RECORDS SUMMARY | 2025-02-23 07:14 | XMS_ITS | Clinical Summary ---
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
--- OUTSIDE RECORDS SUMMARY | 2025-02-23 07:14 | XMS_ITS | Clinical Summary ---
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 Gender Identity Not on file Sexual Orientation [...] Maintenance Insurance MEDICARE PART A AND B [facility] Advance Directives For more information, please contact: [phone] * Full Code (Latest Code Status on File) Date Activated Date Inactivated Comments 06/18/2015 6:36 PM 06/21/2015 3:06 PM * Full Code Date Activated Date Inactivated Comments 06/17/2015 10:43 AM 06/17/2015 3:00 PM * Full Code Date Activated Date Inactivated Comments 08/03/2012 10:34 AM 08/03/2012 2:03 PM Care Teams Bailing Machine Operator Relationship Specialty Start Date End Date Milton Madrigal MD [address] [place] [address] PCP - General Family Practice 07/28/12
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
--- NOTE | 2025-02-23 07:46 | PC.NURSE ---
Addendum entered by Juana Malone RN 02/23/25 07:48: Dr. Augustin approved placement in forearm to avoid upper L basilic/brachial vein(s) for possible new PICC placement. Original Note: per verbal order of Dr. Augustin to place ultrasound guided 2.5in IV temporarily for patient to receive antibiotics until a new PICC line can be placed. 2.5in 18G IV placed in L forearm without complication. No difficulty of flushing noted, blood return present. Secured with transparent tegaderm. Pt denies pain.
== END 2025-02-23 07:55 | disposition home or self-care (01) ==
PROVIDERS: Emergency Provider Family Medicine; PCP Family Medicine
DX: Z45.2 Encounter for adjustment and management of vascular access device (principal); Z79.02 Long term (current) use of antithrombotics/antiplatelets; M86.9 Osteomyelitis, unspecified; I25.10 Atherosclerotic heart disease of native coronary artery without angina pectoris; E78.5 Hyperlipidemia, unspecified; Z86.73 Personal history of transient ischemic attack (TIA), and cerebral infarction without residual deficits
CPT/HCPCS: 99282

== ENCOUNTER → 2025-03-08 09:11 | Outpatient (BNVA) | payer MEDICARE, OTHER, SELFPAY | PROVIDERS: PCP Family Medicine; Visit Provider Thoracic Surgery (Cardiothoracic Vascular Surgery) | DX: Z09 Encounter for follow-up examination after completed treatment for conditions other than malignant neoplasm (principal); Z89.612 Acquired absence of left leg above knee | CPT/HCPCS: 99203 ==

== ENCOUNTER 2025-03-21 12:52 | Oncology outpatient (recurring) (ONCR) | payer MEDICARE, OTHER, SELFPAY ==
--- NOTE | 2025-03-06 11:45 | US_ITS ---
WS: [id number] ULTRASOUND GUIDED BIOPSY LEFT ILIUM. HISTORY: Possible bone met on Lt. illiac crest, destructive bone lesion involving the LEFT ilium, positive on PET/CT. Procedure, risks, and complications are explained to the patient. Consent was obtained. Skin is cleansed with ChloraPrep and anesthetized with 1% buffered lidocaine. Destructive bone lesion is identified involving the superior LEFT ilium. Ultrasound will be attempted first. Dermatotomy is made. 18-gauge Temno needle is inserted into the dermatome. Multiple core biopsies are performed of the destructive bone lesion in the LEFT ilium. Numerous core biopsies obtained and placed in formalin. No complications were encountered. US/ biopsy [id number] IMPRESSION: Uncomplicated LEFT ilium bone biopsy. Destructive bone lesion. Multiple core bi opsies obtained and placed in formalin.
--- NOTE | 2025-03-21 13:52 | ONCRAD EPV_ITS ---
Radiation Oncology Established Patient Visit Patient: Charanjit Alan [id number] : 1940 Age: 84 Sex: Male Dictated by: Dr. Tommy Mejia Date of Service: 03/21/2025 Referring Physician(s) : Diagnosis: C34.91 - Malignant neoplasm of unspecified part of right bronchus or lung, Diagnosed 11/21/2024 (Active) Radiotherapy to Date: Course: RUL, Treatment Site: RUL SBRT, Ref. ID: [id number], Energy: 6X, Dose/Fx (cGy): 1,200, #Fx: , Dose Correction (cGy): 0, Total Dose Delivered (cGy): 4,800, Start Date: 12/17/2024, End Date: 12/21/2024, Elapsed Days: 4 Current History: This is a pleasant 84-year-old male who is now out of the rehab center after left AKA. He is also had recent revision. He has not been fitted for prosthesis yet. Patient underwent biopsy of the left iliac crest which returned metastatic ADENOCARCINOMA favoring pulmonary primary. Patient desires treatment to that site. He will undergo CT simulation today and be treated to 5 fractions completing this next week. Current Medications: cholecalciferol (vitamin D3) 75 mcg PO DAILY [electric scooter As directed] gabapentin 300 mg PO DAILY hydrocodone-acetaminophen 5-325 mg 1 tab PO Q8H PRN 4 weeks lisinopril 20 mg PO BID magnesium hydroxide (Milk of Magnesia) 30 mL PO DAILY PRN tamsulosin TAKE 1 CAPSULE BY MOUTH DAILY temazepam 30 mg PO .QHS 3 months vitamins A,C,U-rqvv-utjjld 2,148 mcg-113 mg-45 mg-17.4mg (PreserVision AREDS) 2 tabs PO DAILY Allergies: Opioids - Morphine Analogues Allergy (Verified 01/28/25 11:19) See scary things atorvastatin (From Lipitor) Adverse Reaction (Severe, Verified 01/28/25 11:19) myalgias Current Complaints / Review of Systems: . Vital Signs: Performed on 03/21/2025 12:57 PM BMI - 18.391 kg/m2 (low), Height - 72 in, Weight - 135.6 lbs, Temperature - 98.4 f, Pulse - 78 /min, Respiration - 17 /min, O2 Sat - 95 % (low), Pain - 6, Fatigue - 0 and BP - 119/ 73 mm(hg). Physical Exam: General: Alert and oriented x 3. No acute distress. HEENT: Normocephalic, atraumatic. Extraocular Movements Intact: Pupils Equal, Round, Reactive to Light and Accommodation: Sclerae anicteric. Oral cavity is clear without lesions, masses or ulcers. NECK: Supple without supraclavicular or jugular lymphadenopathy. LUNGS: Clear to auscultation bilaterally without rales, rhonchi or wheeze. HEART: Regular rate and rhythm, normal S1 and S2 without murmur, gallop or rub. MUSCULOSKELETAL: No tenderness or percussion pain over the axial skeleton, scapulae or pelvis. PET positive as well as biopsy positive carcinoma left iliac crest. ABDOMEN: Soft, nontender, nondistended without masses or organomegaly. Bowell sounds are present. EXTREMITIES: No peripheral edema is identified. Limited motor and sensory examination are grossly intact and symmetric bilaterally. NEUROLOGIC: Cranial nerves II ???XII are grossly intact. Normal sensation, strength 5/5 in all extremities, normal gait, no ataxia. Performance Status: KPS 80 Lab: None pending. Pathology: Primary, c34.91 - malignant neoplasm of unspecified part of right bronchus or lung, Diagnosed 11/21/2024 (active) . 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 Patient desired treatment to this area. Patient signed informed consent under his own free will after all questions answered CT simulation was performed today. We will plan to fuse the PET/CT for better localization. Plan to treat 2000 cGy in 5 fractions to commence next Tuesday, March 25, 2025. Signed by: 03/21/2025 1:51:02 PM <<Signature on File>> Time spent with patient/family/review of records/preparation of document: 25 minutes CPT Code: CPT Code:
== END 2025-03-21 23:59 | disposition home or self-care (01) ==
PROVIDERS: PCP Family Medicine; Visit Provider Radiology Radiation Oncology
DX: Z51.0 Encounter for antineoplastic radiation therapy (principal); C34.91 Malignant neoplasm of unspecified part of right bronchus or lung
CPT/HCPCS: 76942; 77290; 77334; 88307; 88311; 88342; 99024; 99204

== ENCOUNTER 2025-03-29 10:39 | Oncology outpatient (recurring) (ONCR) | payer MEDICARE, OTHER, SELFPAY ==
--- NOTE | 2025-03-26 13:56 | ONCRAD TMN_ITS ---
Radiation Oncology Weekly Treatment Management Patient: Charanjit Alan MR#: [id number] : 1940 Attending Physician: Dr. Feliz Salguero Date of Service: 03/26/2025 Referring Physician(s) : Diagnosis: C79.51 - Secondary malignant neoplasm of bone, Diagnosed 03/06/2025 (Active) C34.91 - Malignant neoplasm of unspecified part of right bronchus or lung, Diagnosed 11/21/2024 (Active) Radiotherapy to date: Course: Lt [id number], Treatment Site: Lt Iliac 2024, Ref. ID: Lt [id number], Energy: 15X/6X, Dose/Fx (cGy): 400, #Fx: 2 / 5, Dose Correction (cGy): 0, Total Dose Delivered (cGy): 800, Start Date: 03/25/2025, Elapsed Days: 1 Reason for visit: The patient is being seen today as part of their regularly scheduled weekly on treatment visits to assess for acute toxicities from radiotherapy. Review of Systems: Pain in lateral left hip unchanged. Using HC and APAP BID. Bowels slow but are moving. Still smoking. Pain is rated 6 on 10 score. Vital Signs: Performed on 03/26/2025 1:31 PM BMI - 18.201 kg/m2 (low), Height - 72 in, Weight - 134.2 lbs, Temperature - 97.6 f, Pulse - 72 /min, Respiration - 16 /min, Pain - 6, Fatigue - 0 and BP - 142/ 73 mm(hg)(high/). Physical Exam: Imaging: Radiation therapy imaging related to accurate target localization (i.e. KV, MV and CBCT) was reviewed. Appropriate changes, if any, were made to ensure treatment accuracy. Plan: Good tolerance of treatment . Continue as planned. Signed by: Dr. Feliz Salguero 03/26/2025 1:54:41 PM
--- NOTE | 2025-04-08 08:44 | N.ONRD TS_ITS ---
Radiation Oncology Treatment Summary Patient: Charanjit Alan MR#: [id number] : 1940 Age: 84 Sex: Male Dictated by: Tommy Mejia Date of Service: 03/29/2025 Referring Physician(s) : Diagnosis: C79.51 - Secondary malignant neoplasm of bone, Diagnosed 03/06/2025 (Active) C34.91 - Malignant neoplasm of unspecified part of right bronchus or lung, Diagnosed 11/21/2024 (Active) Radiotherapy to Date: Course: Lt [id number], Treatment Site: Lt Iliac 2024, Ref. ID: Lt [id number], Energy: 15X/6X, Dose/Fx (cGy): 400, #Fx: 5 / 5, Dose Correction (cGy): 0, Total Dose Delivered (cGy): 2,000, Start Date: 03/25/2025, End Date: 03/29/2025, Elapsed Days: 4 Course: RUL, Treatment Site: RUL SBRT, Ref. ID: [id number], Energy: 6X, Dose/Fx (cGy): 1,200, #Fx: 4 / 4, Dose Correction (cGy): 0, Total Dose Delivered (cGy): 4,800, Start Date: 12/17/2024, End Date: 12/21/2024, Elapsed Days: 4 Clinical Summary: The patient tolerated RT well. Left hip pain unchanged Plan: End of treatment today. Continue on the above medication until the skin reaction resolves. Follow up in one month. Signed by: Tommy Mejia>04/08/2025 8:43:03 AM <<Signature on File>>
== END 2025-04-21 23:59 | disposition home or self-care (01) ==
PROVIDERS: PCP Family Medicine; Visit Provider Radiology Radiation Oncology
DX: Z51.0 Encounter for antineoplastic radiation therapy (principal); C34.91 Malignant neoplasm of unspecified part of right bronchus or lung; C79.51 Secondary malignant neoplasm of bone
CPT/HCPCS: 77295; 77300; 77334; 77336; 77387; 77412; 99024

== ENCOUNTER 2025-05-21 12:02 | Oncology outpatient (recurring) (ONCR) | payer MEDICARE, OTHER, SELFPAY ==
--- NOTE | 2025-05-01 15:30 | CTR_ITS ---
PROCEDURE INFORMATION: Exam: CT Chest Without Contrast; Diagnostic Exam date and time: 05/01/2025 3:31 PM Age: 84 years old Clinical indication: Condition or disease; Lung condition and disease; Cancer of the lung; Unspecified; Primary cancer: Malignant neoplasm of upper lobe, right bronchus. ; Additional info: C34.11 - malignant neoplasm of upper lobe, right bronchus. . . TECHNIQUE: Imaging protocol: Diagnostic computed tomography of the chest without contrast. Radiation optimization: All CT scans at this facility use at least one of these dose optimization techniques: automated exposure control; mA and/or kV adjustment per patient size (includes targeted exams where dose is matched to clinical indication); or iterative reconstruction. COMPARISON: PT PET skull to thigh INIT [id number] 11/30/2024 10:29 AM RADIATION DOSE METRICS: Total DLP (mGy-cm): 244.33 FINDINGS: Lungs: Both lungs demonstrate diffuse chronic interstitial coarsening. There is an area of spiculated soft tissue density involving the right lung apex. The central portion of this area measures 3.4 x 1.3 cm in the axial plane. No other lung mass or infiltrate noted. Pleural spaces: Unremarkable. No pneumothorax. No pleural effusion. Heart: Unremarkable. No cardiomegaly. No pericardial effusion. Coronary arteries: Coronary artery calcifications are noted. Lymph nodes: Unremarkable. No enlarged lymph nodes. Vasculature: Unremarkable. No aortic aneurysm. Bones/joints: Surgical changes involve the right lateral ribcage. Soft tissues: Unremarkable. CT/CT chest wo con [id number] IMPRESSION: 1. No evidence of interval disease progression 2. Stable soft tissue mass effect in the right apex
--- NOTE | 2025-05-08 14:57 | ONCRAD EPV_ITS ---
Radiation Oncology Established Patient Visit Patient: Charanjit Alan [id number] : 1940 Age: 84 Sex: Male Dictated by: Tommy Mejia Date of Service: 05/08/2025 Referring Physician(s) : Diagnosis: C79.51 - Secondary malignant neoplasm of bone, Diagnosed 03/06/2025 (Active) C34.91 - Malignant neoplasm of unspecified part of right bronchus or lung, Diagnosed 11/21/2024 (Active) Radiotherapy to Date: Course: Lt [id number], Treatment Site: Lt Iliac 2024, Ref. ID: Lt [id number], Energy: 15X/6X, Dose/Fx (cGy): 400, #Fx: 5 / 5, Dose Correction (cGy): 0, Total Dose Delivered (cGy): 2,000, Start Date: 03/25/2025, End Date: 03/29/2025, Elapsed Days: 4 Course: RUL, Treatment Site: RUL SBRT, Ref. ID: [id number], Energy: 6X, Dose/Fx (cGy): 1,200, #Fx: 4 / 4, Dose Correction (cGy): 0, Total Dose Delivered (cGy): 4,800, Start Date: 12/17/2024, End Date: 12/21/2024, Elapsed Days: 4 Current History: This is a pleasant 84-year-old male in a wheelchair and amputation of the left lower leg. He states that the pain in the left hip is no better. We will increase his hydrocodone 05/24 25-[address] of the chest shows a central portion being 3.4 x 1.3 cm previously it was 1.7 cm on 11/30/2024. Based on CT results we cannot note activity of the 3.4 x 1.3 cm so we will get a PET/CT to evaluate that as well as the left hip bony disease. Current Medications: cholecalciferol (vitamin D3) 75 mcg PO DAILY [electric scooter As directed] gabapentin 300 mg PO DAILY hydrocodone-acetaminophen 10-325 mg 1 tab PO Q6H PRN 4 weeks lisinopril 20 mg PO BID magnesium hydroxide (Milk of Magnesia) 30 mL PO DAILY PRN tamsulosin TAKE 1 CAPSULE BY MOUTH DAILY temazepam 30 mg PO .QHS 1 month vitamins A,C,B-aoia-yhwtdf 2,148 mcg-113 mg-45 mg-17.4mg (PreserVision AREDS) 2 tabs PO DAILY Allergies: Opioids - Morphine Analogues Allergy See scary things atorvastatin (From Lipitor) Adverse Reaction myalgias Current Complaints / Review of Systems: . Vital Signs: Performed on 05/08/2025 2:03 PM Height - 72 in, Temperature - 98.1 f, Pulse - 70 /min, Respiration - 17 /min, O2 Sat - 99 %, Pain - 7, Fatigue - 0 and BP - 122/ 89 mm(hg). Physical Exam: General: Alert and oriented x 3. No acute distress. HEENT: Normocephalic, atraumatic. Extraocular Movements Intact: Pupils Equal, Round, Reactive to Light and Accommodation: Sclerae anicteric. Oral cavity is clear without lesions, masses or ulcers. NECK: Supple without supraclavicular or jugular lymphadenopathy. LUNGS: Clear to auscultation bilaterally without rales, rhonchi or wheeze. HEART: Regular rate and rhythm, normal S1 and S2 without murmur, gallop or rub. MUSCULOSKELETAL: No tenderness or percussion pain over the axial skeleton, scapulae or pelvis. ABDOMEN: Soft, nontender, nondistended without masses or organomegaly. Bowell sounds are present. EXTREMITIES: No peripheral edema is identified. Limited motor and sensory examination are grossly intact and symmetric bilaterally. NEUROLOGIC: Cranial nerves II ???XII are grossly intact. Normal sensation, strength 5/5 in all extremities, normal gait, no ataxia. Performance Status: KPS 70 Lab: None pending. Pathology: Primary, c79.51 - secondary malignant neoplasm of bone, Diagnosed 03/06/2025 (active) and Primary, c34.91 - malignant neoplasm of unspecified part of right bronchus or lung, Diagnosed 11/21/2024 (active) . Imaging: See HPI Impression: Rt Lung ca with Bone Mets Plan: PET / CT to gauge RT Response and review hip disease extent RTC after PET to discuss further plans Signed by: 05/08/2025 2:56:38 PM <<Signature on File>> Time spent with patient: CPT Code: CPT Code:
--- NOTE | 2025-05-17 16:00 | PETR_ITS ---
PROCEDURE INFORMATION: Exam: PET/CT Skull Base to Mid-thigh Exam date and time: 05/17/2025 4:50 PM Age: 84 years old Clinical indication: Condition or disease; Primary cancer: Small cell lung cancer; Malignant neoplasm upper lobe RT; Additional info: Small cell lung cancer, has had imaging prior LABS AND CLINICAL REPORTS: Glucose: 137 mg/dl Treatment strategy for malignancy (PET staging): Restaging (PS) TECHNIQUE: Imaging protocol: Following at least four-hour fasting and following the injection of radiopharmaceutical, low dose CT images were obtained. Then, PET images were obtained. Attenuation corrected images were constructed using the CT scan. Fused images of PET and CT were reviewed. The standardized uptake values (SUV) reported below are maximum values within a region of interest, expressed in gm/ml. Exam includes orbital meatal line to mid-thigh. SUV normalization method: BodyWeight Radiopharmaceutical: 11 mCi F-18 FDG (Fluorodeoxyglucose), IV. Time of imaging post radiopharmaceutical administration: 48 minutes Injection site: LAC COMPARISON: 1. CT head wo con* [id number] 10/26/2024 9:47 AM 2. PT PET skull to thigh INIT [id number] 11/30/2024 10:[address] chest wo con [id number] 05/01/2025 3:31 PM FINDINGS: Brain: Stable right frontal lobe encephalomalacia. Visualized brain has otherwise normal physiologic uptake. Pharynx: No abnormal uptake. Larynx: No abnormal uptake. Lungs, pleura and trachea: Decreased FDG avid spiculated right upper lobe nodule measures 1.5 cm on axial image 62 and shows SUV max 3.2, previously 1.7 cm with SUV max 12.9. Radiating bands with developed low-level FDG uptake. Mild platelike atelectasis versus scarring at the lower lobes. Left lower lobe calcified granulomata. Heart: Normal physiologic uptake. Coronary arteries: Heavy coronary artery calcification. Mediastinal space: No abnormal uptake. Liver: No abnormal uptake. Gallbladder and biliary ducts: No abnormal uptake. Pancreas: No abnormal uptake. Spleen: No abnormal uptake. Adrenal glands: FDG-avid right adrenal nodule shows stable size and CT appearance from January 2018, measuring approximately 1.7 cm with SUV max 17.8, previously 14.4. Developed focal left adrenal FDG uptake without underlying CT abnormality, SUV max 3.5 on axial image 144. Kidneys and ureters: Normal physiologic uptake. Stable bilateral renal cysts and subcentimeter lesions too small to characterize. Stomach and bowel: No abnormal uptake. Colonic diverticulosis without findings of diverticulitis. Urinary bladder: Mild irregular hyperdense thickening along the right posterior urinary bladder wall. Reproductive: Stable prostatomegaly with suspected prior TURP. Vasculature: No abnormal uptake. Heavy systemic atherosclerotic calcification without aortic aneurysm. Left femoral artery bypass graft. Lymph nodes: No enlarged lymphadenopathy. Similar to slightly increased low-level FDG uptake at nonenlarged calcified mediastinal nodes likely on the basis of old granulomatous disease. Low-level bilateral hilar uptake without underlying node favored to be benign physiologic or possibly granulomatous. Stable size right posterolateral paratracheal lymph node measuring 7 mm in the short axis on axial image 59 shows SUV max 3.9, previously 2.5. Skeleton: Increased sclerosis of mixed sclerotic and lytic lesion of the anterior left iliac bone with decreased FDG avidity showing SUV max 5.7 on axial image 196, previously 14.8. Stable chronic non FDG avid compression deformities along multiple lower thoracic and lumbar spine vertebral bodies with developed focal FDG avidity at L1-L2 intervertebral space involving inferior L1 and superior L2 Schmorl's node changes. There is also developed oblique bandlike FDG uptake with subtle suggested lucency at the posteroinferior L3 vertebral body. Degenerative changes along the spine. Non FDG avid posttraumatic/postsurgical changes to the ixlek-theacov-sbsg-left face to include the right globe and orbit. Mild periarticular FDG uptake at the shoulders and hips is likely inflammatory. 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 Soft tissues: No suspicious abnormal uptake in the visualized head, neck, chest, abdomen, pelvis, and extremities. METRICS: Mediastinal blood pool: SUV mean 2.1 Liver uptake: SUV mean 2.4 PET/PET skull to thigh SUBS [id number] IMPRESSION: 1. Decreased FDG avid spiculated 1.5 cm right upper lobe nodule with developed low-level uptake at radiating bands possibly on the basis of posttreatment change. 2. Decreased FDG uptake at stable size lytic and sclerotic anterior left iliac lesion showing mildly increased sclerosis. 3. Developed focal low-level left adrenal FDG uptake without underlying CT abnormality favors benign hyperplasia, metastasis difficult to entirely exclude. 4. Developed low-level FDG uptake at stable size nonenlarged right posterolateral paratracheal node. Favor benign reactive, metastasis not entirely excluded. 5. Similar to slightly increased low-level FDG uptake at nonenlarged calcified mediastinal lymph nodes likely on the basis of old granulomatous disease, less likely metastatic. 6. Developed mild irregular hyperdense thickening along the right posterior urinary bladder wall may represent intraluminal debris, neoplasm not entirely excluded. Consider repeat pelvic CT with prone positioning. 7. Mildly increased FDG uptake at right adrenal nodule showing stable size and CT appearance most likely represents benign adenoma. 8. Additional chronic and incidental findings as above.
--- NOTE | 2025-05-21 13:17 | ONCRAD EPV_ITS ---
Radiation Oncology Established Patient Visit Patient: Dayanna Donohue [id number] : 1940> Age: 84> Sex: Male> Dictated by: Dr. Marcia Snell Date of Service: 05/21/2025 Referring Physician(s) : Diagnosis: C79.51 - Secondary malignant neoplasm of bone, Diagnosed 03/06/2025 (Active) C34.91 - Malignant neoplasm of unspecified part of right bronchus or lung, Diagnosed 11/21/2024 (Active) Patient is an 84-year-old gentleman with a poor performance status who underwent treatment for a right upper lobe lung cancer in November 2024. He had developed a bony lesion in the left pelvis which was treated in February 2025. At his last follow-up he was complaining of hip pain and a PET scan was done. The PET scan that showed stable old disease and no new disease. He continues to have pain but now he also has back pain as well. His family says that he basically sits in his chair all day or he lays in the bed. 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 Radiotherapy to Date: Course: Lt [id number], Treatment Site: Lt Iliac 2024, Ref. ID: [id number], Energy: 15X/6X, Dose/Fx (cGy): 400, #Fx: 5 / 5, Dose Correction (cGy): 0, Total Dose Delivered (cGy): 2,000, Start Date: 03/25/2025, End Date: 03/29/2025, Elapsed Days: 4 Course: RUL, Treatment Site: RUL SBRT, Ref. ID: [id number], Energy: 6X, Dose/Fx (cGy): 1,200, #Fx: 4 / 4, Dose Correction (cGy): 0, Total Dose Delivered (cGy): 4,800, Start Date: 12/17/2024, End Date: 12/21/2024, Elapsed Days: 4 Current History: Current Medications: cholecalciferol (vitamin D3) 75 mcg PO DAILY [electric scooter As directed] gabapentin 300 mg PO DAILY hydrocodone-acetaminophen 10-325 mg 1 tab PO Q6H PRN 4 weeks lisinopril 20 mg PO BID magnesium hydroxide (Milk of Magnesia) 30 mL PO DAILY PRN RSVPreF3 antigen-AS01E (PF) 120 mcg/0.5 mL 0.5 mL IM ONCE tamsulosin TAKE 1 CAPSULE BY MOUTH DAILY temazepam 30 mg PO .QHS 1 month vitamins A,C,U-yjfg-ctdcxq 2,148 mcg-113 mg-45 mg-17.4mg (PreserVision AREDS) 2 tabs PO DAILY Allergies: Opioids - Morphine Analogues Allergy (Verified 01/28/25 11:19) See scary things atorvastatin (From Lipitor) Adverse Reaction (Severe, Verified 01/28/25 11:19) myalgias Current Complaints / Review of Systems: . Vital Signs: Performed on 05/21/2025 11:58 AM BMI - 18.309 kg/m2 (low), Height - 72 in, Weight - 135 lbs, Temperature - 97.1 f, Pulse - 79 /min, Respiration - 18 /min, O2 Sat - 92 % (low), Pain - 7, Fatigue - 0 and BP - 131/ 81 mm(hg). Physical Exam: General: Alert and oriented x 3. No acute distress.. . LUNGS: Respiratory rate is regular nonlabored. HEART: Regular rate and rhythm,. . ABDOMEN: Patient is fairly cachectic with minimal adipose tissue EXTREMITIES: [id number] amputation on the left.. Performance Status: 60 Lab: None pending. Pathology: Primary, c79.51 - secondary malignant neoplasm of bone, Diagnosed 03/06/2025 (active) and Primary, c34.91 - malignant neoplasm of unspecified part of right bronchus or lung, Diagnosed 11/21/2024 (active) . Imaging: See HPI Impression: Non-small cell carcinoma lung Plan: I reviewed the PET scan with him and his family. We talked about how the cancer is remained stable or improved. At this point I recommended that he visit with the pain management team since his aches and pains are basically related to noncancer related issues. I did recommend that he return in 6 months for follow-up and have scans on a fairly regular basis if he has a change in symptoms. Signed by: 05/21/2025 1:17:04 PM <<Signature on File>> Time spent with patient: 25 CPT Code: CPT Code:
== END 2025-05-21 23:59 | disposition home or self-care (01) ==
PROVIDERS: PCP Family Medicine; Visit Provider Radiology Radiation Oncology
DX: C34.11 Malignant neoplasm of upper lobe, right bronchus or lung (principal); D03.39 Melanoma in situ of other parts of face; L98.8 Other specified disorders of the skin and subcutaneous tissue; L82.1 Other seborrheic keratosis; Z08 Encounter for follow-up examination after completed treatment for malignant neoplasm; Z85.828 Personal history of other malignant neoplasm of skin; D48.5 Neoplasm of uncertain behavior of skin
CPT/HCPCS: 11102; 71250; 78815; 99024; 99214; A9552

== ENCOUNTER → 2025-05-27 10:39 | Outpatient (BNVA) | payer MEDICARE, OTHER, SELFPAY | PROVIDERS: PCP Family Medicine; Referring Provider Radiology Radiation Oncology; Visit Provider Anesthesiology Pain Medicine | DX: M51.369 Other intervertebral disc degeneration, lumbar region without mention of lumbar back pain or lower extremity pain (principal); M47.816 Spondylosis without myelopathy or radiculopathy, lumbar region; M51.16 Intervertebral disc disorders with radiculopathy, lumbar region; M53.3 Sacrococcygeal disorders, not elsewhere classified; M16.12 Unilateral primary osteoarthritis, left hip | CPT/HCPCS: 99204 ==

== ENCOUNTER → 2025-06-12 14:17 | Outpatient (BNVA) | payer MEDICARE, OTHER, SELFPAY | PROVIDERS: PCP Family Medicine; Visit Provider Anesthesiology Pain Medicine | DX: M16.9 Osteoarthritis of hip, unspecified (principal) | CPT/HCPCS: 20610; 77002; J1100; J3490; J9999 ==

== ENCOUNTER → 2025-07-22 16:11 | Outpatient (BNVA) | payer MEDICARE, OTHER, SELFPAY | PROVIDERS: PCP Family Medicine; Visit Provider Family Medicine | DX: I10 Essential (primary) hypertension (principal); I73.9 Peripheral vascular disease, unspecified | CPT/HCPCS: 80053; 85025 ==

== ENCOUNTER → 2025-07-25 13:06 | Outpatient (BNVA) | payer MEDICARE, OTHER, SELFPAY | PROVIDERS: PCP Family Medicine; Visit Provider Thoracic Surgery (Cardiothoracic Vascular Surgery) | DX: I96 Gangrene, not elsewhere classified (principal); T24.312A Burn of third degree of left thigh, initial encounter; T24.211A Burn of second degree of right thigh, initial encounter; T21.26XA Burn of second degree of male genital region, initial encounter; X10.0XXA Contact with hot drinks, initial encounter | CPT/HCPCS: 97597; 97598; 99213; A6219 ==

== ENCOUNTER → 2025-07-29 14:05 | Outpatient (BNVA) | payer MEDICARE, OTHER, SELFPAY | PROVIDERS: PCP Family Medicine; Visit Provider Anesthesiology Pain Medicine | DX: M25.552 Pain in left hip (principal); M51.369 Other intervertebral disc degeneration, lumbar region without mention of lumbar back pain or lower extremity pain; M47.816 Spondylosis without myelopathy or radiculopathy, lumbar region; M51.16 Intervertebral disc disorders with radiculopathy, lumbar region; M53.3 Sacrococcygeal disorders, not elsewhere classified | CPT/HCPCS: 99214 ==

== ENCOUNTER → 2025-08-02 09:48 | Outpatient (BNVA) | payer MEDICARE, OTHER, SELFPAY | PROVIDERS: PCP Family Medicine; Visit Provider Thoracic Surgery (Cardiothoracic Vascular Surgery) | DX: I96 Gangrene, not elsewhere classified (principal); T21.26XD Burn of second degree of male genital region, subsequent encounter; T24.211D Burn of second degree of right thigh, subsequent encounter; T24.312D Burn of third degree of left thigh, subsequent encounter; X10.0XXD Contact with hot drinks, subsequent encounter | CPT/HCPCS: 97597; 97598; A6219; J9999 ==

== ENCOUNTER → 2025-08-08 14:53 | Outpatient (BNVA) | payer MEDICARE, OTHER, SELFPAY | PROVIDERS: PCP Family Medicine; Visit Provider Thoracic Surgery (Cardiothoracic Vascular Surgery) | DX: I96 Gangrene, not elsewhere classified (principal); T21.26XD Burn of second degree of male genital region, subsequent encounter; T24.211D Burn of second degree of right thigh, subsequent encounter; T24.212D Burn of second degree of left thigh, subsequent encounter; X10.0XXD Contact with hot drinks, subsequent encounter | CPT/HCPCS: 97597; J9999 ==